=== PATIENT | male | born 2000 | race Caucasian/White ===

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

== ENCOUNTER 2020-01-28 17:42 | Emergency (ER) | payer MEDICARE, MEDICAID, SELFPAY ==
[2020-01-28 17:43] VITALS: BP 102/71; PULSE 85; RESP 18; TEMP 36.6; O2SAT 98; BMI 20.7
--- NOTE | 2020-01-28 19:21 | CM.ED ---
Social Work Consult: Mental Health Informant: Dr. Helton Chief Complaint: my dad wanted me to get checked out. Patient states to have nowhere to live. Marital/Social History: Single Living Situation: Unclear. Patient states to have been living with step sister but to be unable to live there anymore for reasons I don't want to share. Patient appears to be homeless and to have been staying with friends. Support/Resources: Reports to be active with [employer] and the [facility] Board of . Education/Employment: Disability due to developmental disabilities. Reports to be a normal person and to have no difficulty with understanding or comprehension. Patient reports to be own guardian. States to work at [employer]. Mental Health treatment/History: ADHD, Autism. Denies any concerns or history of inpatient psychiatric placement. Abuse Issues: Denies Substance Abuse/Use: Denies Risk to Self/Others: Denies Mental Status Exam: A&Ox3 Appearance/General Behavior: Appropriate. Calm. Communication Pattern: Responds to questions. Affect: Pleasant. Judgement: Fair Assessment: Met with patient in room. Introduced self as well as psychotherapist social worker role. Patient is agreeable to meeting with this psychotherapist social worker. Patient states to have no concerns for mental health or ability to care for self. Patient states to only want to find housing. Patient educated that this psychotherapist social worker is only able to contact [facility] for this evening and provide patient with housing resources. Patient agreeable to this psychotherapist social worker calling [facility] to see if there are any openings. Patient denies any other concerns or complaints at this time. Collaborating with Dr. Helton. Agreeable with plan for [facility] as patient has no medical reason for ED visit. Dirk EARLY, ROGER
--- NOTE | 2020-01-28 19:30 | CM.ED ---
Social Work This social service assistant walking through ED hallway to office to call [facility] for patient. Patient stopping this social service assistant in hallway stating My friend is coming to pick me up. Patient states to feel safe with friend and to now have housing. Patient thanking this social service assistant and wanting to leave. This social service assistant updated Dr. Helton and nursing staff. PLAN: Discharge to friends home. Dirk EARLY, ROGER
--- NOTE | 2020-01-28 19:35 | ED.VIS.GEN ---
History of Present Illness Chief Complaint: Mental Health Informant: Patient Narrative: Patient without symptoms who is very vague about why he came. He states that he is here because his dad wanted him to get checked out. He arrives alone. He states although my dad wanted me to get checked out/evaluated, I am not suicidal or homicidal, using any illicit substances, pretty myself in harm's way. But as you can see from my pack bags, I happened to be homeless at the moment. He states he was living with a sister recently and he states things did not work out for him as he had hoped they would so he left and is now on the streets for the past 2 or 3 days. States he has been eating and drinking, he has no medical issues or symptoms and has been compliant with his ADHD and autism/behavior medications including Risperdal. - Past Medical History (1) Autism Status: Chronic (2) ADHD Status: Chronic Past Medical History - Allergies and Home Meds Allergies/Adverse Reactions: Allergies No Known Allergies Allergy (Verified 01/05/17 08:29) Primary Care Physician: Roxi Blue MD [Primary Care Provider] - Lives: Homeless Smoking Status: Never smoker Alcohol: None Drugs: None Review of Systems General: Denies: Chills, Fever, Sweats Eyes: Denies: Visual changes - bilaterally, Diplopia ENT: Denies: Rhinorrhea, Sore throat Cardiovascular: Denies: Chest pain, Palpitations Respiratory: Denies: Dyspnea, Cough, Dyspnea on exertion Gastrointestinal: Denies: Abdominal pain, Nausea, Vomiting, Diarrhea, Melena, Hematochezia Genitourinary: Denies: Dysuria, Hematuria, Frequency Musculoskeletal: Denies: Back pain, Extremity Pain Skin: Denies: Rash, Wounds Neurological: Denies: Headache, Weakness, Numbness Psych: Reports: - - No homicidal ideation, hallucinations, delusions. Denies: Depression, Suicidal thoughts, Suicidal ideations Physical Exam Vital Signs/Narrative: Vital Signs Temp Pulse Resp BP Pulse Ox 01/28/20 17:43 97.9 F 85 18 102/71 98 Inital Vital Signs reviewed: Yes General: Well nourished, Well developed, No Acute Distress Head: Normocephalic, Atraumatic Eyes: Perrl, EOMI ENT: Moist mucous membranes, No rhinorrhea Neck: Supple, Nontender Cardiovascular: Regular rate, Regular rhythm, No murmurs Respiratory: No distress, CTA bilaterally, Chest nontender Abdomen: Soft, Nontender, Nondistended, Normal bowel sounds Back: Nontender, Normal Inspection Extremities: Nontender, No edema Skin: Normal color, No rash, No Trauma Neurological: Alert, Oriented x3, Cranial nerves II-XII grossly intact, Normal Strength, Normal Sensation, Normal Gait, - - Stuttering speech, no aphasia or dysarthria Psychological: Normal affect, Normal Mood Diagnostic/Tx/Re-eval - Medical Decision Making Medically patient does not need work-up. I had social work see him, in the process of evaluating him and trying to find him a half-way to go to [facility], he was texting with his father and a friend and someone is coming to pick him up. ED Disposition - Plan for ED Patient: Disposition: Home or Assisted Living Diagnosis: Encounter for medical screening examination Instructions: ADHD and Your Family Referrals: Roxi Blue MD [Primary Care Provider] - As Needed (and/or your counselor)
== END 2020-01-28 19:44 | disposition home or self-care (01) ==
PROVIDERS: Emergency Provider Emergency Medicine; PCP Pediatrics
DX: Z13.9 Encounter for screening, unspecified (principal); Z59.0 Homelessness; F84.0 Autistic disorder; F90.9 Attention-deficit hyperactivity disorder, unspecified type; Z79.899 Other long term (current) drug therapy
CPT/HCPCS: 99282

== ENCOUNTER 2020-02-10 13:50 | Emergency (ER) | payer MEDICARE, MEDICAID, SELFPAY ==
[2020-02-10 13:51] VITALS: BP 109/61; PULSE 77; RESP 18; TEMP 36.8; O2SAT 98; BMI 21.5
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
[2020-02-10] MEDS: Naproxen 500 MG Tablet PO (14:57)
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
--- NOTE | 2020-02-10 16:15 | ED.RN ---
DISCHARGE INSTRUCTIONS GIVEN TO AND REVIEWED WITH PATIENT, PATIENT DENIES QUESTIONS OR CONCERNS AND VOICES UNDERSTANDING OF DISCHARGE INSTRUCTIONS. PT AMBULATES OUT OF ROOM WITHOUT DIFFICULTY.
== END 2020-02-10 16:16 | disposition home or self-care (01) ==
LOC: ED 15:08
PROVIDERS: Emergency Provider Emergency Medicine; PCP Pediatrics
DX: S31.814A Puncture wound with foreign body of right buttock, initial encounter (principal); F31.9 Bipolar disorder, unspecified; Z79.899 Other long term (current) drug therapy; Z72.0 Tobacco use; W34.010A Accidental discharge of airgun, initial encounter; Y93.89 Activity, other specified; Y92.89 Other specified places as the place of occurrence of the external cause; Y99.8 Other external cause status
CPT/HCPCS: 72170; 99283

== ENCOUNTER → 2020-02-17 | Outpatient (CLI) | payer MEDICARE, MEDICAID, SELFPAY ==
[2020-02-10 13:51] VITALS: BMI 21.5
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
== END | disposition home or self-care (01) ==
LOC: CT 07:37
PROVIDERS: PCP Pediatrics; Referring Provider Orthopaedic Surgery; Visit Provider Orthopaedic Surgery
DX: S31.814A Puncture wound with foreign body of right buttock, initial encounter (principal)
CPT/HCPCS: 73700

== ENCOUNTER 2020-03-23 19:00 | Emergency (ER) | payer MEDICARE, MEDICAID, SELFPAY ==
[2020-03-23 19:02] VITALS: BP 95/52; PULSE 89; RESP 16; TEMP 36.4; O2SAT 96; BMI 20.9
[2020-03-23] MEDS: 0.9% Normal Saline 1,000 ML 1000 ML IV (20:13)
[2020-03-23 20:27] LABS: Absolute Lymphocyte Count 0.68 X10^3/uL (0.83-4.51); Absolute Neutrophil Count 7.9 X10^3/uL (2.0-7.7); Basophil# 0.02 X10^3/uL; Basophil% 0.2 % (0-1); Eosinophil# 0.05 X10^3/uL; Eosinophils% 0.5 % (0-5); Hematocrit 39.2 % (40-54); Hemoglobin 13.6 g/dL (13.0-16.5); Lymphocyte # 0.68 X10^3/ul (4.0); Lymphocyte % 7.2 % (19-41); Mean Corp Hgb Conc 34.7 g/dL (32-36); Mean Corpuscular Hgb 33.6 pg (27.0-32.0); Mean Corpuscular Volume 96.8 fL (80-94); Mean Platelet Vol. 10.1 fl (6.2-12.0); Monocyte# 0.71 X10^3/uL; Monocyte% 7.6 % (0-10); NRBC Flagged by Analyzer 0 % (0-5); Neutrophil # 7.87 X10^3/uL (2.7-7.7); Platelet Count 132 K/mm3 (150-450); RBC Distribution Width CV 11.7 % (11.6-14.6); RBC Distribution Width SD 41.5 fl (35.1-43.9); Red Blood Count 4.05 M/mm3 (4.6-6.2); White Blood Count 9.4 K/mm3 (4.4-11.0)
[2020-03-23 20:41] LABS: ALB/GLOB Ratio 1.5 RATIO (0.9-2.4); AST(SGOT) 14 U/L (15-37); Alanine Aminotransfer ALT/SGPT 27 U/L (16-61); Albumin, Serum 4.3 g/dL (3.2-5.0); Alkaline Phosphatase 70 U/L (45-117); Anion Gap 7 (5-15); BUN 20 mg/dL (7-18); BUN/Creat Ratio 15.9 RATIO (10-20); Calcium,Total 8.9 mg/dL (8.5-10.1); Chloride 103 mmol/L (98-107); Creatinine, Serum 1.26 mg/dL (0.70-1.30); EST Glomerular Filtration Rate 77 mL/min (>60); Est Glom Filt Rate - Afr Amer 93 mL/min (>60); Globulin 2.9 g/dL (2.2-4.2); Glucose 103 mg/dL (74-106); Protein, Total 7.2 g/dL (6.4-8.2); Sodium Level 138 mmol/L (136-145)
--- NOTE | 2020-03-23 21:26 | ED.VIS.GEN ---
History of Present Illness Chief Complaint: Substance Abuse Narrative: Patient is brought in by his father, apparently he consumed quite a bit of synthetic marijuana prior to arrival. His only complaint is that he is sleepy and hungry. Denies any myalgias, he denies any fever or chills, patient is somnolent but is arousable, he admits to synthetic marijuana he denies any other drugs. He specifically denies any suicidal ideations Past Medical History - Allergies and Home Meds Allergies/Adverse Reactions: Allergies No Known Allergies Allergy (Verified 03/23/20 19:04) Primary Care Physician: Roxi Blue MD [Primary Care Provider] - Past Medical History: None Smoking Status: Current every day smoker Review of Systems All systems negative except as indicated General: Denies: Fever Eyes: Denies: Visual changes - bilaterally ENT: Denies: Sore throat Cardiovascular: Denies: Chest pain Respiratory: Denies: Dyspnea, Cough Gastrointestinal: Denies: Abdominal pain, Nausea, Vomiting Musculoskeletal: Denies: Myalgias Skin: Denies: Rash Neurological: Denies: Headache, Weakness Hematologic: Denies: Easy bruising Physical Exam Vital Signs/Narrative: Vital Signs Temp Pulse Resp BP Pulse Ox 03/23/20 19:02 97.6 F L 89 16 95/52 L 96 General: Well nourished, Well developed, - - Somnolent but arousable Eyes: Perrl, EOMI, - - 3 mm pupils ENT: Moist mucous membranes Cardiovascular: Regular rate, Regular rhythm Respiratory: No distress Abdomen: Soft, Nontender Back: Nontender, Normal Inspection Extremities: Nontender Skin: Normal color Neurological: Alert, Oriented x3 Psychological: Normal affect Diagnostic/Tx/Re-eval - Medical Decision Making She was observed and slightly improved, he appears well, he has normal vitals and normal laboratory work-up I will discharge him in stable condition ED Disposition - Plan for ED Patient: Disposition: Home or Assisted Living Diagnosis: Mild tetrahydrocannabinol (THC) abuse Instructions: ED Marijuana Abuse Referrals: Roxi Blue MD [Primary Care Provider] - 3-5 Days
[2020-03-25 14:08] LABS: Creatine Kinase MB 0 % (0-3); Creatine Kinase MM 100 % (97-100); Creatine Kinase,Total,Serum 160 U/L (49-439); Macro I 0 % (Not Observed); Macro II 0 % (Not Observed)
[2020-03-25 15:25] LABS: Creatine Kinase BB 0 % (0)
== END 2020-03-23 21:43 | disposition home or self-care (01) ==
PROVIDERS: Emergency Provider Emergency Medicine; PCP Pediatrics
DX: F12.10 Cannabis abuse, uncomplicated (principal); F17.200 Nicotine dependence, unspecified, uncomplicated
CPT/HCPCS: 80053; 82550; 82552; 85025; 96360; 99285; J7030; A4216

== ENCOUNTER 2020-12-23 00:51 | Emergency (ER) | payer MEDICARE, MEDICAID, SELFPAY ==
[2020-12-23 00:53] VITALS: BP 152/106; PULSE 82; RESP 16; TEMP 36.2; O2SAT 99; BMI 20.7
--- NOTE | 2020-12-23 01:06 | EX.ED.DYSGE1 ---
HPI History of Present Illness Chief Complaint: Wound Informant: patient Onset/Context/Timing Onset: Days Context: Sudden Onset Timing: Continuous Quality: Calluses, blisters, pain Location: Feet Current Severity: Mild Maximum Severity: Moderate Worsened by: Shoes Relieved by: Nothing Associated Symptoms Associated Symptoms: Odor Narrative Narrative: Patient is a 20-year-old male with history depression who is homeless. He states the blisters and calluses formed several days ago. He changed his shoes. States he states these shoes are much more comfortable. He states he has not been out in the rain. The inside of his boots are wet. He has blisters noted on his toes and plantar surface of his foot. There is callus formation. There is no evidence of infection i.e. erythema, warmth or induration. He denies any fever or chills. He states he does smoke marijuana to help his depression. He also smokes half to 1 pack/day and occasional alcohol use to help his depression. Prior similar symptoms: No Recent Illness/Hospitalization: No PFSH PFSH Medical History (Updated 12/23/20 @ 01:[address] Mikey Benjamin MD) Anxiety Depression Home Medications NK 12/23/20 [History Last Taken Unknown] Allergy/AdvReac Type Severity Reaction Status Date / Time No Known Allergies Allergy Verified 12/23/20 00:52 unable to obtain no surgical history Social History (Updated 12/23/20 @ 01:[address] Mikey Benjamin MD) household members: none housing: homeless Smoking Status: Current every day smoker alcohol intake: current alcohol intake frequency: a few times a month substance use type: marijuana ROS ROS ED Constitutional Constitutional ED: Denies chills, fever(s), subjective or sweats Cardiovascular Cardiovascular: Denies chest pain or palpitations Respiratory/Chest Respiratory/Chest: Denies cough or dyspnea Gastrointestinal Gastrointestinal: Denies nausea or vomiting Musculoskeletal Musculoskeletal: Reports other Details: Bilateral feet pain due to calluses and blisters from prior shoes. ; Denies arthralgias, back pain, myalgias or neck pain Integumentary Denies rash Psychiatric Psychiatric: Reports depression; Denies suicidal thoughts EXAM Physical Exam Const Vital Signs: 12/23/20 00:53 Temperature 97.2 F L Temperature Source Temporal Pulse Rate 82 Respiratory Rate 16 Blood Pressure 152/106 H Blood Pressure Mean 121 Pulse Ox 99 Oxygen Delivery Method Room Air Positive well nourished and well developed General Appearance ED: well developed; Negative for pallor Eyes PERRL and EOMs intact bilaterally General Eye ED: Negative for pale conjunctiva or scleral icterus Neck no lymphadenopathy, supple and no JVD Chest Wall inspection of chest normal Resp normal respiratory effort Cardio regular rate and regular rhythm Extremity Negative for normal to inspection Extremity Narrative: Patient has multiple blisters on his toes and plantar surface of his right and left foot. There is calluses noted. There is no evidence infection i.e. erythema, warmth, induration or fluctuance. There is no lymphangitis. DP and PT pulse are palpable. There is no evidence of fungal infection between his toes. General Extremety ED: Yes tenderness; Negative for edema General Extremity: Negative for edema Psych mental status grossly normal Skin skin turgor normal Skin Narrative: Previously described General Skin Exam: Negative for jaundice or pallor MDM MDM MDM Narrative Medical decision making narrative: We'll have nurse clean his feet and had his feet. Since his shoes are wet and concerned he is developing trench foot as well as problems with blisters and calluses well dispense postop shoe for comfort. Discharge Plan Triage Chief Complaint: Wound Other Complaint: Lower Extremity Injury ED Provider: Mikey Benjamin Dx/Rx/DC Orders Clinical Impression: Blisters of multiple sites, Callus of foot, Trench feet Instructions: Treating Corns and Calluses Prescriptions: No Action NK RF: 0 Primary Care Provider: NOT,DEFINED Referrals: She John [NON-STAFF] - 1 Week if not improving NOT,DEFINED [Primary Care Provider] - Disposition Disposition: Home, self care
--- NOTE | 2020-12-23 01:15 | ED.RN ---
Redness and callouses noted on bilat feet. HE has boots that are damp. Feet and shoes have strong smell. Cleaned with soap and water and dried well. Applied lotion and let dry completely before giving him socks and post op boots. Tolerated well.
[2020-12-23 01:36] VITALS: BP 144/74; PULSE 62; RESP 16; TEMP 36.9; O2SAT 97
== END 2020-12-23 01:38 | disposition home or self-care (01) ==
LOC: ED 01:28
PROVIDERS: Emergency Provider Emergency Medicine
DX: L84 Corns and callosities (principal); T69.022A Immersion foot, left foot, initial encounter; T69.021A Immersion foot, right foot, initial encounter; R23.8 Other skin changes; F17.210 Nicotine dependence, cigarettes, uncomplicated; Z59.0 Homelessness
CPT/HCPCS: 99283

== ENCOUNTER 2020-12-24 22:13 | Emergency (ER) | payer MEDICARE, MEDICAID, SELFPAY ==
[2020-12-23 00:53] VITALS: BMI 20.7
[2020-12-24 22:14] VITALS: BP 106/60; PULSE 76; RESP 14; TEMP 36.4; O2SAT 97; BMI 22.2
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
[2020-12-24 23:15] LABS: Absolute Lymphocyte Count 2.28 X10^3/uL (0.83-4.51); Absolute Neutrophil Count 2.8 X10^3/uL (2.0-7.7); Basophil# 0.03 X10^3/uL; Basophil% 0.5 % (0-1); Eosinophil# 0.29 X10^3/uL; Eosinophils% 4.9 % (0-5); Hematocrit 37.7 % (40-54); Hemoglobin 12.7 g/dL (13.0-16.5); Lymphocyte # 2.28 X10^3/ul (0.83-4.51); Lymphocyte % 38.5 % (19-41); Mean Corp Hgb Conc 33.7 g/dL (32-36); Mean Corpuscular Hgb 33.2 pg (27.0-32.0); Mean Corpuscular Volume 98.4 fL (80-94); Mean Platelet Vol. 9.8 fl (6.2-12.0); Monocyte# 0.48 X10^3/uL; Monocyte% 8.1 % (0-10); NRBC Flagged by Analyzer 0 % (0-5); Neutrophil % 47.3 % (47-70); Platelet Count 140 K/mm3 (150-450); RBC Distribution Width SD 46.1 fl (35.1-43.9); Red Blood Count 3.83 M/mm3 (4.6-6.2); White Blood Count 5.9 K/mm3 (4.4-11.0)
[2020-12-24 23:21] LABS: Anion Gap 4 (5-15); BUN 17 mg/dL (7-18); BUN/Creat Ratio 13.5 RATIO (10-20); Calcium,Total 8.5 mg/dL (8.5-10.1); Chloride 109 mmol/L (98-107); Creatinine, Serum 1.26 mg/dL (0.70-1.30); EST Glomerular Filtration Rate 77 mL/min (>60); Est Glom Filt Rate - Afr Amer 93 mL/min (>60); Estimated Creatinine Clearance 92.35 ml/min; Glucose 92 mg/dL (74-106); Potassium 3.7 mmol/L (3.5-5.1); Sodium Level 141 mmol/L (136-145)
[2020-12-25 00:11] VITALS: BP 100/63; PULSE 58; RESP 12; O2SAT 95
[2020-12-25 02:56] VITALS: BP 98/64; PULSE 49; RESP 12; O2SAT 97
[2020-12-25 04:25] VITALS: BP 90/59; PULSE 49; RESP 10; O2SAT 100
[2020-12-25 05:08] VITALS: BP 99/66; PULSE 48; RESP 12; O2SAT 100
[2020-12-25 07:00] VITALS: PULSE 60; RESP 14; O2SAT 98
== END 2020-12-25 07:01 | disposition home or self-care (01) ==
PROVIDERS: Emergency Provider Emergency Medicine
DX: F12.10 Cannabis abuse, uncomplicated (principal); F17.200 Nicotine dependence, unspecified, uncomplicated
CPT/HCPCS: 80048; 82077; 85025; 99285

== ENCOUNTER 2021-01-11 12:03 | Emergency (ER) | payer MEDICARE, MEDICAID, SELFPAY ==
[2021-01-11 12:05] VITALS: BP 111/73; PULSE 85; RESP 16; TEMP 37.2; O2SAT 96; BMI 21.2
--- NOTE | 2021-01-11 13:59 | EDS_ITS ---
HPI HPI - Psych History of Present Illness Chief Complaint: Mental Health Informant: patient Narrative Narrative: Patient is a 20-year-old male with a past medical history of autism, ADHD who presents to the emergency department after his parents called the police. He was saying things about harming other people. According to his parents he was making comments arriving places. Patient denies any thoughts of harming yourself or anybody else at this time. He states he would never do that and he understands the consequences of this. He states that he was just feeling very frustrated which caused him to say these things. He denies these thoughts before in the past. Patient denies any other physical symptoms. No headache or vision changes. No chest pain or shortness of breath. He denies any fevers or chills. No neck pain. He states he has been on a mood stabilizer over the past couple months which he feels like has been helping. He denies any drug or alcohol use. He does smoke cigarettes. [facility] Medical History Anxiety Depression Home Medications NK 12/23/20 [History Last Taken Unknown] Allergy/AdvReac Type Severity Reaction Status Date / Time No Known Allergies Allergy Verified 01/11/21 12:08 Social History household members: none housing: homeless Smoking Status: Current every day smoker tobacco type: cigarettes alcohol intake: current alcohol intake frequency: a few times a month substance use type: marijuana ROS ROS ED Constitutional Constitutional ED: Denies chills or fever(s) Eyes Eyes: Denies change in vision ENT ENT ED: Denies epistaxis or rhinorrhea Cardiovascular Cardiovascular: Denies chest pain or palpitations Respiratory/Chest Respiratory/Chest: Denies cough, dyspnea or dyspnea on exertion Gastrointestinal Gastrointestinal: Denies abdominal pain, diarrhea, nausea or vomiting Genitourinary Genitourinary ED: Denies dysuria, hematuria or urinary frequency Musculoskeletal Musculoskeletal: Denies back pain or neck pain Integumentary Denies rash Neurologic Neurologic: Denies dizziness, headache(s) or weakness EXAM Physical Exam Const Vital Signs: 01/11/21 14:37 Pulse Rate 84 Respiratory Rate 18 Blood Pressure 112/70 Positive well nourished and well developed General Appearance ED: well developed and NAD HEENT Reports normocephalic and head/scalp atraumatic Eyes PERRL and EOMs intact bilaterally Neck supple Resp normal respiratory effort and clear to auscultation bilaterally Auscultation: Negative for rales, rhonchi or wheezes Cardio regular rate, regular rhythm and no murmurs GI normal to inspection, nondistended, normoactive bowel sounds and non-tender Palpation: soft; Negative for guarding or rebound tenderness present Back/Spine no CVA tenderness Extremity normal to inspection General Extremety ED: Negative for edema or tenderness General Extremity: Negative for edema Neuro oriented x3, CN's II-XII intact bilaterally and no sensory deficits noted Sensorium / Orientation: alert Motor Exam: strength 5/5 throughout Psych mental status grossly normal Psych Narrative: Patient does get mildly agitated because he cannot smoke a cigarette. He otherwise has been very calm and cooperative throughout ED stay. Denying any suicidal or homicidal ideations. Skin no rashes or lesions noted MDM MDM MDM Narrative Medical decision making narrative: Patient presents to the ED for pink slip made by the police after his parents called him about thoughts of harming other peopl e. Patient states that he was just seeing this out of frustration and he would never do that. Social work did evaluate the patient and contacted his special machine stitcher. Patient understands that he cannot say these things. He is denying all suicidal or homicidal ideation throughout ED stay. Social work did not contact with his father was willing to medicinal plant picker patient. They are going to follow-up with him today and tomorrow. Crisis has been notified of him. Return precautions are reviewed with the patient to be discharged home in stable condition. All questions were answered. Discharge Plan Triage Chief Complaint: Mental Health ED Provider: Luis Guan Dx/Rx/DC Orders Clinical Impression: Agitation, Thoughts of harming others Instructions: Responding Better to Stress Prescriptions: No Action NK RF: 0 Primary Care Provider: Care Physician,No Primary Referrals: Ryland Menon MD [STAFF PHYSICIAN] - As soon as possible Care Physician,No Primary [Primary Care Provider] - Disposition Disposition: Home, self care Discharge Date/Time: 01/11/21 14:37
[2021-01-11 14:37] VITALS: BP 112/70; PULSE 84; RESP 18
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
--- NOTE | 2021-01-12 12:43 | CM.ED ---
SOCIAL WORK Follow up call Call to patient to check on status from ER visit on 01/11/2021. Patient reports I'm doing good. [facility] Patient denies any questions or concerns. Yareli Altman, CAR SHUNTER, SANDBLAST OR SHOTBLAST EQUIPMENT TENDER
--- NOTE | 2021-01-13 11:10 | CM.ED ---
SOCIAL WORK Received call from patient's Tax Collector through [employer], Ines Sotelo. Per Ines, patient did follow up after ER visit. Ines provided this worker with contact information for any future needs- [phone]. Per Ines, Release of Information has been sent to Medical Records. Yareli Altman MSW, SUBMARINE WORKER
== END 2021-01-11 14:37 | disposition home or self-care (01) ==
PROVIDERS: Emergency Provider Emergency Medicine
DX: R45.1 Restlessness and agitation (principal); R45.850 Homicidal ideations; F41.9 Anxiety disorder, unspecified; F32.9 Major depressive disorder, single episode, unspecified; F17.210 Nicotine dependence, cigarettes, uncomplicated; Z79.899 Other long term (current) drug therapy
CPT/HCPCS: 99282

== ENCOUNTER 2021-01-14 01:15 | Emergency (ER) | payer MEDICARE, MEDICAID, SELFPAY ==
[2021-01-14 01:17] VITALS: BP 113/97; PULSE 64; RESP 18; TEMP 36.3; O2SAT 100; BMI 20.6
--- NOTE | 2021-01-14 01:21 | RAD_ITS ---
STUDY: X-RAY - RIGHT TIBIA AND FIBULA REASON FOR EXAM: Male, 20 years old. pain TECHNIQUE: 4 view(s) of the tibia and fibula were obtained. COMPARISON: None. FINDINGS: Normal visualized tibia. Normal visualized fibula. The soft tissue structures are unremarkable. RAD/Tibia & Fibula 2 Views IMPRESSION: Normal x-ray examination of the tibia and fibula. Electronically Signed: Geovanny Espinosa DO at 1:54 EDT Tel , Service support ,
--- NOTE | 2021-01-14 01:21 | EDS_ITS ---
HPI History of Present Illness Chief Complaint: Lower Extremity Injury Informant: patient and EMS Narrative Narrative: Patient presents with right lower tibia pain. He states that he has been walking a lot, to and from [place]. He has pain over the anterior portion of the lower tibia. He has some mild swelling. Is worse when he walks but he took nothing for. He denies any specific injury except for overuse. No previous injuries or surgeries to this area. [facility] Medical History Anxiety Depression Home Medications lamotrigine 50 mg PO BID 01/14/21 [History Last Taken Unknown] risperidone 4 mg PO QHS 01/14/21 [History Last Taken Unknown] Allergy/AdvReac Type Severity Reaction Status Date / Time No Known Allergies Allergy Verified 01/14/21 01:21 Surgical History History of embolic filter insertion Social History household members: none housing: homeless Smoking Status: Current every day smoker tobacco type: cigarettes alcohol intake: current alcohol intake frequency: a few times a month substance use type: marijuana ROS ROS ED Constitutional Constitutional ED: Denies chills or fever(s) Eyes Eyes: Denies blurry vision, change in vision or diplopia ENT ENT ED: Denies ear pain, rhinorrhea or sore throat Cardiovascular Cardiovascular: Denies chest pain or palpitations Respiratory/Chest Respiratory/Chest: Denies cough, dyspnea or sputum Gastrointestinal Gastrointestinal: Denies abdominal pain, diarrhea, nausea or vomiting Genitourinary Genitourinary ED: Denies dysuria, hematuria or urinary frequency Musculoskeletal Musculoskeletal: Reports other Details: Right tibial pain Integumentary Denies change in pigmentation or rash Neurologic Neurologic: Denies headache(s), numbness or weakness Psychiatric Psychiatric: Denies anxiety or depression Endocrine Endocrinology: Denies polydipsia or polyuria EXAM Physical Exam Const Vital Signs: 01/14/21 01:17 Temperature 97.3 F L Temperature Source Oral Pulse Rate 64 Respiratory Rate 18 Blood Pressure 113/97 H Blood Pressure Mean 102 Pulse Ox 100 Oxygen Delivery Method Room Air Positive well nourished and well developed General Appearance ED: well developed HEENT normocephalic and atraumatic Eyes PERRL Neck full ROM Extremity Extremity Narrative: The right anterior tibia has some mild swelling. No erythema. He has tenderness of the anterior portion of the tibia. There is no malleoli or tenderness. There is no Achilles tenderness. He has limited range of motion secondary to pain. His compartments are soft. MDM MDM MDM Narrative Medical decision making narrative: Patient was given Tylenol. X-rays did not reveal any acute fractures. Patient will be discharged use ice and NSAIDs. Radiography Diagnostic Testin view x-ray of the right tibia and fibula, interpreted by myself, shows no acute findings. No fracture. Minimal soft tissue swelling noted over the lower tibial area Discharge Plan Triage Chief Complaint: Lower Extremity Injury ED Provider: Travis Evans Dx/Rx/DC Orders Clinical Impression: Lower extremity pain, right Instructions: ED Muscle Strain, Extremity Prescriptions: No Action risperidone 2 mg tablet 4 mg PO QHS RF: 0 lamotrigine 100 mg tablet 50 mg PO BID RF: 0 Primary Care Provider: Care Physician,No Primary Referrals: Care Physician,No Primary [Primary Care Provider] - Disposition Disposition: Home, self care
[2021-01-14] MEDS: Acetaminophen 500 MG Tablet 1000 MG PO (01:24)
== END 2021-01-14 02:09 | disposition home or self-care (01) ==
PROVIDERS: Emergency Provider Emergency Medicine
DX: M79.604 Pain in right leg (principal); F41.9 Anxiety disorder, unspecified; F32.9 Major depressive disorder, single episode, unspecified; F17.210 Nicotine dependence, cigarettes, uncomplicated; Z79.899 Other long term (current) drug therapy
CPT/HCPCS: 73590; 99284

== ENCOUNTER 2021-02-04 11:09 | Emergency (ER) | payer MEDICARE, MEDICAID, SELFPAY ==
[2021-02-04 11:10] VITALS: BP 107/62; PULSE 60; RESP 18; TEMP 36.6; O2SAT 99; BMI 21.5
--- NOTE | 2021-02-04 11:28 | EDS_ITS ---
HPI History of Present Illness Chief Complaint: Rash Informant: patient Narrative Narrative: Patient is a 20-year-old male who presents to the emergency department for pain and rash to the right inner thigh. This initially started yesterday. He states that he feels like his scrotum is rubbing up against his leg which is causing it to irritate. He does not have clean underwear to wear as he is currently homeless. He states his dad is supposed to give him money to buy new clothes whenever he gets out of work around 330 today. Patient denies any systemic symptoms. He has no fevers or chills. No abdominal pain. Denies any urinary symptoms. No change in moving his bowels. He has not a diabetic. He denies this ever happening before in the past. He states that walking and moving the leg and touching the area makes it worse. He has not tried anything for it. He is here to request some ointment to put on it. [facility] Medical History Anxiety Depression Home Medications lamotrigine 50 mg PO BID 01/14/21 [History Last Taken Unknown] risperidone 4 mg PO QHS 01/14/21 [History Last Taken Unknown] Allergy/AdvReac Type Severity Reaction Status Date / Time No Known Allergies Allergy Verified 02/04/21 11:12 Surgical History History of embolic filter insertion Social History household members: none housing: homeless Smoking Status: Current every day smoker tobacco type: cigarettes alcohol intake: current alcohol intake frequency: a few times a month substance use type: marijuana ROS ROS ED Constitutional Constitutional ED: Denies chills or fever(s) Eyes Eyes: Denies change in vision ENT ENT ED: Denies epistaxis or rhinorrhea Cardiovascular Cardiovascular: Denies chest pain or palpitations Respiratory/Chest Respiratory/Chest: Denies cough, dyspnea or dyspnea on exertion Gastrointestinal Gastrointestinal: Denies abdominal pain, diarrhea, nausea or vomiting Genitourinary Genitourinary ED: Denies dysuria, hematuria or urinary frequency Musculoskeletal Musculoskeletal: Denies back pain or neck pain Integumentary Reports rash Neurologic Neurologic: Denies headache(s) EXAM Physical Exam Const Vital Signs: 02/04/21 11:10 02/04/21 12:31 02/04/21 12:34 Temperature 97.9 F Temperature Source Temporal Pulse Rate 60 Respiratory Rate 18 18 18 Blood Pressure 107/62 Blood Pressure Mean 77 Pulse Ox 99 Oxygen Delivery Method Room Air Positive well nourished and well developed General Appearance ED: well developed HEENT Negative for trauma Eyes PERRL Neck supple Chest Wall inspection of chest normal Resp normal respiratory effort Cardio regular rate GI non-tender and non-distended Palpation: soft Back/Spine Lumbar Spine / Lower Back: Negative for lumbar spinal tenderness Neuro CN's II-XII intact bilaterally Sensorium / Orientation: alert Motor Exam: strength 5/5 throughout Psych mental status grossly normal Attitude: agitated Skin Skin Narrative: Erythema and irritation to right inner thigh. There is mild erythema to the right side of the scrotum. This is mildly tender to touch. No crepitus. This does seem like skin irritation. No significant warmth over the area. No drainage present. MDM MDM MDM Narrative Medical decision making narrative: Patient presents to the emergency department for irritation to the skin on his right inner thigh. He has not change his underwear lately and is supposed to buy new underwear today. On exam it does appear red and irritated. We will place him on calmoseptine ointment for barrier protection as well as a mupirocin ointment for potential infection development. He is to monitor for signs of infection including systemic infection. He develops any fever/chills, worsening of the rash needs to return back to the emergency department and put on oral or IV antibiotics. No evidence of foreign years gangrene. He denies any risk factors for this. He understands and is agreeable this plan. Discharged home in stable condition. All questions were answered. Discharge Plan Triage Chief Complaint: Rash ED Provider: Luis Guan Dx/Rx/DC Orders Clinical Impression: Skin irritation Instructions: ED Wound Care Prescriptions: No Action risperidone 2 mg tablet 4 mg PO QHS RF: 0 lamotrigine 100 mg tablet 50 mg PO BID RF: 0 Primary Care Provider: Care Physician,No Primary Referrals: Care Physician,No Primary [Primary Care Provider] - 3-5 Days if not improving Disposition Disposition: Home, Self Care Discharge Date/Time: 02/04/21 12:43
[2021-02-04] MEDS: Mupirocin Ointment 22gm Tube 1 APPLIC TOPICAL (12:28)
[2021-02-04] MEDS: Menthol/Lanolin/Calamine/Znox 113 GM Tube 1 APPLIC TOPICAL (12:30)
[2021-02-04 12:31] VITALS: RESP 18
[2021-02-04 12:34] VITALS: RESP 18
== END 2021-02-04 12:43 | disposition home or self-care (01) ==
PROVIDERS: Emergency Provider Emergency Medicine
DX: L53.9 Erythematous condition, unspecified (principal); Z59.0 Homelessness; F41.9 Anxiety disorder, unspecified; F32.9 Major depressive disorder, single episode, unspecified; F17.210 Nicotine dependence, cigarettes, uncomplicated; Z79.899 Other long term (current) drug therapy
CPT/HCPCS: 99284

== ENCOUNTER 2021-05-08 12:32 | Emergency (ER) | payer MEDICARE, MEDICAID, SELFPAY ==
[2021-05-08] VITALS (12 sets, daily range): BP systolic 94–128; BP diastolic 56–78; PULSE 58–88; RESP 12–16; TEMP 36.2–36.3; O2SAT 99–100; BMI 21.4
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
--- NOTE | 2021-05-08 12:51 | EKG12_ITS ---
Test Reason : MENTAL CLEARANCE Blood Pressure : / mmHG Vent. Rate : 051 BPM Atrial Rate : 051 BPM P-R Int : 120 ms QRS Dur : 100 ms QT Int : 428 ms P-R-T Axes : -25 075 053 degrees QTc Int : 394 ms Sinus bradycardia Otherwise normal ECG Confirmed by ORESTES VARGHESE, DAVID ([id number]), fashion editor JESSICA MOSCOSO ([id number]) on 05/10/2021 1:25:08 PM Referred By: ESVIN Confirmed By:DAVID CARLISLE MD
[2021-05-08 13:22] LABS: Absolute Lymphocyte Count 1.46 X10^3/uL (0.83-4.51); Absolute Neutrophil Count 2.9 X10^3/uL (2.0-7.7); Basophil# 0.02 X10^3/uL; Basophil% 0.4 % (0-1); Eosinophil# 0.07 X10^3/uL; Eosinophils% 1.4 % (0-5); Hematocrit 41.5 % (40-54); Hemoglobin 13.9 g/dL (13.0-16.5); Lymphocyte # 1.46 X10^3/ul (0.83-4.51); Mean Corp Hgb Conc 33.5 g/dL (32-36); Mean Corpuscular Hgb 33.3 pg (27.0-32.0); Mean Corpuscular Volume 99.3 fL (80-94); Mean Platelet Vol. 9.9 fl (6.2-12.0); Monocyte# 0.35 X10^3/uL; Monocyte% 7.2 % (0-10); NRBC Flagged by Analyzer 0 % (0-5); Neutrophil # 2.94 X10^3/uL (2.7-7.7); Neutrophil % 60.6 % (47-70); Platelet Count 132 K/mm3 (150-450); RBC Distribution Width CV 11.8 % (11.6-14.6); RBC Distribution Width SD 42.9 fl (35.1-43.9); Red Blood Count 4.18 M/mm3 (4.6-6.2); White Blood Count 4.9 K/mm3 (4.4-11.0)
[2021-05-08 13:27] LABS: Amphetamine Urine VISTA NEGATIVE (<1000 ng/mL); Barbiturate Urine VISTA NEGATIVE (< 200 ng/mL); Benzodiazepine Urine VISTA NEGATIVE (< 200 ng/mL); Cocaine Urine VISTA NEGATIVE (< 300 ng/mL); Ecstacy Urine VISTA NEGATIVE (< 500 ng/mL); Methadone Urine VISTA NEGATIVE (< 300 ng/mL); PCP Urine VISTA NEGATIVE (< 25 ng/mL); THC Urine VISTA POSITIVE (< 50 ng/mL); Vista UDS pH Range 6
[2021-05-08 13:31] LABS: Anion Gap 6 (5-15); BUN 19 mg/dL (7-18); BUN/Creat Ratio 16.4 RATIO (10-20); Calcium,Total 8.9 mg/dL (8.5-10.1); Chloride 107 mmol/L (98-107); Creatinine, Serum 1.16 mg/dL (0.70-1.30); EST Glomerular Filtration Rate 84 mL/min (>60); Est Glom Filt Rate - Afr Amer 102 mL/min (>60); Estimated Creatinine Clearance 96.89 ml/min; Glucose 99 mg/dL (74-106); Potassium 3.7 mmol/L (3.5-5.1); Sodium Level 140 mmol/L (136-145)
--- NOTE | 2021-05-08 14:38 | NURSING ---
[facility]. TALKED TO ANSWERING SERVICE. THEY WILL LET [facility] KNOW ABOUT PATIENT
--- NOTE | 2021-05-08 14:45 | NURSING ---
FAX CHART TO CRISIS
--- NOTE | 2021-05-08 15:01 | NURSING ---
[facility], CRISIS, CALLED. SHE HAS TO TAKE CARE OF SOMETHING, THEN SHE WILL BE IN TO SEE PATIENT
--- NOTE | 2021-05-08 20:36 | CM.ED ---
SOCIAL WORK ASSESSMENT Referral Source: Reason for Consult: Mental Health Chief Compliant: Patient said that he is at the hospital as ?people thought I was suicidal as a couple of days ago I put a knife near my neck area. but I said nope not worth it?. Patient said that the lady he lives with, Anyi, brought him to the hospital today. Patient minimizes his behavior said ?If I said something? It was in anger or frustration... I can control it?. Anyi, who he lives with, reports that patient was disappointed as his bio mom was to come and get him this weekend and take him back to [place] but has not come to pick him up. Marital/Social History: Single. No children Living Situation: Patient resides with a woman, Anyi, in [place]. 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 H Support/Resources: He reports Anyi is a support History: No Education and Employment History: Patient is unemployed. Patient graduated from [employer]. He reports he had an IEP that helped him with math and science. Mental Health Treatment/History: [facility] but has been linked with them in the past. Per [facility] records patient has not seen a psychiatric provider since 08/27/19. Patient reports no psychiatric placement in the past. Patient is linked with Dr. Lopez at [facility]. Triggers/Stressors: Patient said that a trigger is ?if someone says something offensive?. Coping Skills: ?I like to talk to someone... I try to sit by myself?. Substance Abuse History: SW asked about AOD use. Patient said, ?I use marijuana every once and awhile?. He reports that he last used marijuana a day ago and said, ?not that much?. SW asked how much he used, and he said, ?a blunt and then a hit of a second blunt?. Tox + THC Abuse: Patient denied any history of abuse or neglect Risk to Self/Others: Suicidal- Patient denied his suicidal ideation but appears to be minimizing his behavior. Patient said, ?it sounds like that... but I didn?t mean it?. Homicidal: Denied Violence: Denied Mental Status Exam: Orientation: x4 Memory: Patient can recall some history such as where he went and graduated from high school however, he is unable to recall the lady he lives with phone number. Appearance/General Behavior: Clean, Appropriate Hygiene. Cooperative Mood and Affect: Neutral mood and affect Thought Process: Logical and Linear General Intellectual Functioning: Low Average. Had IEP in High School Judgement: Impaired Insight: Impaired Assessment: Patient presents to the ED with the lady he lives with, Anyi. Anyi reports that patient said that patient reports that wants he wants to daily. Patient has voiced, in the past, desire to slit his wrist. Anyi stated that patient took a knife and was moving it back and forth toward his neck this past week and voice SI. Anyi said that she does not know if patient is med compliant. Anyi called his psychiatrist who stated to bring patient to the ED for evaluation. Plan: Inpatient psych unit Anya RAMIREZ
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
--- NOTE | 2021-05-08 22:22 | CM.ED ---
SW Note ABHIJEET called Gladis at [facility]. She indicated patient was accepted. Accepting MD is Ashanti Landin. Patient is going to [facility]. SW was told to have RN to RN call [phone]. ABHIJEET updated RN Cosmo. [facility] called for transport. ABHIJEET called patient's friend, Anyi for update. No further SW needs at this time. Anya RAMIREZ
--- NOTE | 2021-05-08 22:31 | CM.ED ---
SW called patient's friend, Anyi Snell, and updated her that patient is going to [facility] and gave phone number and address. Anyi said that she would update patient's father. No further SW needs at this time Anya RAMIREZ
[2021-05-09 00:23] VITALS: RESP 16
== END 2021-05-09 00:24 ==
PROVIDERS: Emergency Provider Emergency Medicine
DX: R45.851 Suicidal ideations (principal); F17.210 Nicotine dependence, cigarettes, uncomplicated; Z79.899 Other long term (current) drug therapy
CPT/HCPCS: 80048; 80307; 82077; 85025; 87426; 93005; 99285

== ENCOUNTER 2021-05-26 20:57 | Emergency (ER) | payer MEDICARE, MEDICAID, SELFPAY ==
[2021-05-26 20:58] VITALS: BP 117/84; PULSE 91; RESP 16; O2SAT 96
[2021-05-26 20:59] VITALS: BP 117/84; PULSE 91; RESP 15; TEMP 36.9; O2SAT 98; BMI 21.7
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
--- NOTE | 2021-05-26 21:11 | RAD_ITS ---
STUDY: X-RAY - LEFT ELBOW REASON FOR EXAM: Male, 20 years old. trauma TECHNIQUE: 3 view(s) of the elbow. COMPARISON: None. FINDINGS: Normal visualized humerus, radius and ulna. Normal radiocapitellar and ulnotrochlear articulations. The soft tissue structures are unremarkable. There is no demonstrated fracture. RAD/Elbow min 3 Views IMPRESSION: Normal x-ray examination of the elbow. Electronically Signed: Jamar Robbins MD at 21:39 EDT , Service support ,
[2021-05-26 21:59] VITALS: BP 110/74; PULSE 90; RESP 15; O2SAT 98
== END 2021-05-26 22:01 | disposition home or self-care (01) ==
LOC: ED 21:33
PROVIDERS: Emergency Provider Emergency Medicine
DX: S50.02XA Contusion of left elbow, initial encounter (principal); F41.9 Anxiety disorder, unspecified; F32.A Depression, unspecified; F90.9 Attention-deficit hyperactivity disorder, unspecified type; F17.210 Nicotine dependence, cigarettes, uncomplicated; Z79.899 Other long term (current) drug therapy; V03.90XA Pedestrian on foot injured in collision with car, pick-up truck or van, unspecified whether traffic or nontraffic accident, initial encounter; Y93.01 Activity, walking, marching and hiking; Y92.410 Unspecified street and highway as the place of occurrence of the external cause; Y99.8 Other external cause status
CPT/HCPCS: 73080; 99283; A4216

== ENCOUNTER 2021-05-29 05:33 | Emergency (ER) | payer MEDICARE, MEDICAID, SELFPAY ==
[2021-05-29 05:34] VITALS: BP 100/66; PULSE 69; RESP 16; TEMP 36.4; O2SAT 97; BMI 22.6
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
--- NOTE | 2021-05-29 05:52 | RAD_ITS ---
HISTORY: pain EXAMINATION/TECHNIQUE: XR Ankle Min 3 Views: Left ankle COMPARISON: None FINDINGS: SOFT TISSUES: No significant soft tissue swelling. No radiopaque foreign body identified. BONES/JOINTS: No acute fracture or subluxation. Normal alignment. Preservation of the joint spaces. No suspicious osseous lesion. RAD/Ankle min 3 Views IMPRESSION: Negative left ankle. at 0615 Reported and signed by: Blayne Rodas MD Electronically Signed: Blayne Rodas MD at 6:14 EDT Tel , Service support ,
== END 2021-05-29 07:03 | disposition home or self-care (01) ==
PROVIDERS: Emergency Provider Emergency Medicine
DX: T69.022A Immersion foot, left foot, initial encounter (principal); T69.021A Immersion foot, right foot, initial encounter; F41.9 Anxiety disorder, unspecified; F32.A Depression, unspecified; F90.9 Attention-deficit hyperactivity disorder, unspecified type; F17.210 Nicotine dependence, cigarettes, uncomplicated; Z79.899 Other long term (current) drug therapy
CPT/HCPCS: 73610; 99285; A4216

== ENCOUNTER 2021-06-23 12:59 | Emergency (ER) | payer MEDICARE, MEDICAID, SELFPAY ==
[2021-06-23 13:00] VITALS: BP 102/61; PULSE 74; RESP 18; TEMP 36.6; O2SAT 96; BMI 22.8
== END 2021-06-23 14:20 | disposition left against medical advice (07) ==
LOC: ED 14:33
DX: F32.A Depression, unspecified (principal)

== ENCOUNTER 2021-09-05 06:42 | Emergency (ER) | payer MEDICARE, MEDICAID, SELFPAY ==
[2021-09-05 06:43] VITALS: BP 141/66; PULSE 76; RESP 20; TEMP 36.8; O2SAT 100; BMI 21.9
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
--- NOTE | 2021-09-05 07:20 | EKG12_ITS ---
Test Reason : CP Blood Pressure : / mmHG Vent. Rate : 079 BPM Atrial Rate : 079 BPM P-R Int : 126 ms QRS Dur : 100 ms QT Int : 380 ms P-R-T Axes : -22 080 049 degrees QTc Int : 435 ms Normal sinus rhythm Normal ECG Confirmed by CATHI MENDEZ MD ([id number]), web content editor JESSICA MOSCOSO ([id number]) on 09/06/2021 10:13:03 AM Referred By: BRANDY Confirmed By:CATHI MENDEZ MD
[2021-09-05 07:46] VITALS: BP 122/72; PULSE 68; RESP 11; O2SAT 100
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
[2021-09-05 08:18] VITALS: BP 122/72; PULSE 80; RESP 16; O2SAT 100
--- NOTE | 2021-09-05 08:52 | ED.RN ---
PT FATHER TAKES PT HOME.
== END 2021-09-05 08:52 | disposition home or self-care (01) ==
LOC: ED 07:32
PROVIDERS: Emergency Provider Emergency Medicine; Visit Provider Emergency Medicine
DX: R07.9 Chest pain, unspecified (principal); F17.210 Nicotine dependence, cigarettes, uncomplicated; F12.90 Cannabis use, unspecified, uncomplicated; Z59.00 Homelessness unspecified; Z79.899 Other long term (current) drug therapy
CPT/HCPCS: 93005; 99285; A4216

== ENCOUNTER 2021-09-11 20:23 | Emergency (ER) | payer MEDICARE, MEDICAID, SELFPAY ==
[2021-09-11 20:24] VITALS: BP 125/75; PULSE 78; RESP 16; TEMP 35.8; O2SAT 100; BMI 21.4
--- NOTE | 2021-09-11 20:45 | EX.ED.SAOD ---
HPI History of Present Illness Chief Complaint: Palpitations Narrative Narrative: 20-year-old male presenting for evaluation. He states that he smoked medical marijuana tonight and became very high and his ear started ringing. He began to have anxiety about this. His friends told him that he was just high but he presented to the ER for evaluation. He states that his concern was that he did some drugs a couple of weeks ago. He does not know what he took. He states he did not overdose but he is concerned that he might have triggered a withdrawal by smoking medical marijuana. He states the marijuana was not laced and does not have concern for this. Patient has no cardiac history. He has no lung problems. Patient has not had fever, chills, cough. He feels otherwise well. PFSH PFSH Medical History ADHD (attention deficit hyperactivity disorder) Anxiety Depression Smoker Home Medications lamotrigine 50 mg PO BID 01/14/21 [History Last Taken Unknown] risperidone 4 mg PO QHS 01/14/21 [History Last Taken Unknown] Allergy/AdvReac Type Severity Reaction Status Date / Time No Known Allergies Allergy Verified 09/11/21 20:24 Surgical History History of embolic filter insertion Social History household members: none housing: homeless Smoking Status: Current every day smoker tobacco type: cigarettes alcohol intake: current alcohol intake frequency: a few times a month substance use type: marijuana ROS ROS ED Constitutional Constitutional ED: Denies chills or fever(s) Eyes Eyes: Denies blurry vision or diplopia ENT ENT ED: Reports other Details: Tinnitus ; Denies rhinorrhea or sore throat Cardiovascular Cardiovascular: Reports chest pain and palpitations Respiratory/Chest Respiratory/Chest: Denies cough or dyspnea Gastrointestinal Gastrointestinal: Denies abdominal pain, nausea or vomiting Genitourinary Genitourinary ED: Denies dysuria or urinary frequency Musculoskeletal Musculoskeletal: Denies arthralgias or myalgias Integumentary Denies abscess or rash Neurologic Neurologic: Denies headache(s) or weakness Psychiatric Psychiatric: Denies anxiety or depression EXAM Physical Exam Const Vital Signs: 09/11/21 20:24 Temperature 96.5 F L Temperature Source Temporal Pulse Rate 78 Respiratory Rate 16 Blood Pressure 125/75 H Blood Pressure Mean 91 Pulse Ox 100 Oxygen Delivery Method Room Air Positive well nourished General Appearance ED: NAD; Negative for pallor HEENT Reports moist mucous membranes atraumatic and trauma Eyes PERRL and EOMs intact bilaterally Neck no lymphadenopathy Chest Wall inspection of chest normal and palpation of chest normal Resp normal respiratory effort and clear to auscultation bilaterally Cardio regular rate and regular rhythm GI soft to palpation and non-tender Neuro oriented x3, CN's II-XII intact bilaterally and no sensory deficits noted Speech: speech normal Motor Exam: strength 5/5 throughout Psych mental status grossly normal and thought process normal Skin General Skin Exam: Negative for jaundice or pallor Lesions: no lesions Rashes: no rashes MDM MDM MDM Narrative Medical decision making narrative: Patient presenting with anxiety and ringing in his ears as well as some mild chest discomfort from smoking medical marijuana and having anxiety. Patient's vital signs are stable he is afebrile. He has no history of cardiac disease and I have low suspicion for ACS because he is 20 years old. He has no family history of early heart disease. Patient is PERC negative. He is awake and alert. His vital signs are stable and he is afebrile. Lungs are clear to auscultation. Heart is regular rate and rhythm without murmur. Do not believe he needs lab work or imaging. I counseled him this is likely a side effect of him smoking medical marijuana. He request a ride home and for us to call his father. Impression: 1. Drug abuse Discharge Plan Triage Chief Complaint: Palpitations Other Complaint: Chest Pain ED Provider: Johnie Napier Dx/Rx/DC Orders Instructions: ED Drug Abuse Prescriptions: No Action risperidone 2 mg tablet 4 mg PO QHS RF: 0 lamotrigine 100 mg tablet 50 mg PO BID RF: 0 Primary Care Provider: Care Physician,No Primary Referrals: Care Physician,No Primary [Primary Care Provider] - Disposition Disposition: Home, Self Care
== END 2021-09-11 21:18 | disposition home or self-care (01) ==
LOC: ED 20:59
PROVIDERS: Emergency Provider Student in an Organized Health Care Education/Training Program; Visit Provider Student in an Organized Health Care Education/Training Program
DX: F12.10 Cannabis abuse, uncomplicated (principal); F17.210 Nicotine dependence, cigarettes, uncomplicated
CPT/HCPCS: 99284

== ENCOUNTER 2021-09-23 04:21 | Emergency (ER) | payer MEDICARE, MEDICAID, SELFPAY ==
[2021-09-23 04:22] VITALS: BP 133/74; PULSE 82; RESP 17; TEMP 36.4; O2SAT 99; BMI 22.5
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
[2021-09-23 05:09] VITALS: BP 131/87; PULSE 87; RESP 17; O2SAT 100
== END 2021-09-23 05:24 | disposition home or self-care (01) ==
PROVIDERS: Emergency Provider Emergency Medicine; Visit Provider Emergency Medicine
DX: B86 Scabies (principal); F32.A Depression, unspecified; F41.9 Anxiety disorder, unspecified; F17.210 Nicotine dependence, cigarettes, uncomplicated; Z79.899 Other long term (current) drug therapy
CPT/HCPCS: 99284

== ENCOUNTER 2021-09-25 07:21 | Emergency (ER) | payer MEDICARE, MEDICAID, SELFPAY ==
[2021-09-25 07:21] VITALS: BP 120/77; PULSE 80; RESP 16; TEMP 36.2; O2SAT 100; BMI 20.7
--- NOTE | 2021-09-25 07:44 | RAD_ITS ---
STUDY: X-RAY CHEST REASON FOR EXAM: Male, 20 years old. chest pain chest pain this am. previous chest pain issues related to drugs per patient TECHNIQUE: Frontal and lateral views of the chest COMPARISON: 05 January 2017 FINDINGS: The lungs are clear and expanded. There is no demonstrated pleural abnormality. Normal size heart. Normal mediastinum and chris. Normal visualized pulmonary arteries. Normal visualized aortic arch and descending thoracic aorta. Normal visualized thoracic spine. Normal visualized ribs, clavicles, and shoulders. There is no demonstrated abnormality of the visualized soft tissue structures of the upper abdomen. RAD/Chest PA and Lateral IMPRESSION: Normal x-ray examination of the chest. Electronically Signed: Cassie Hines MD at 8:24 EST ,
--- NOTE | 2021-09-25 07:46 | EX.ED.DYSGE1 ---
HPI History of Present Illness Chief Complaint: Chest Pain Informant: patient Narrative Narrative: Patient is a 20-year-old male with history of ADHD and autism presenting for chest discomfort. Patient states he smoked liquid THC that he got from a medical marijuana store last night. He notes he smoked more than normal. He started having chest pain. He states every time he smokes marijuana he gets very anxious and then has chest pain on the left side of his chest. He called EMS last night and at that time they signed him off and he stayed home. He called again this morning. He states when he woke up he felt fine but then started having the discomfort in his chest again. Denies any radiation of pain. Is more noticeable if he takes a deep breath but not changed by breathing. Denies any shortness of breath. Denies a history of DVT or PE. Denies any swelling of his lower extremities. Patient has had multiple EMS calls and multiple ER visits for the same complaint. He states that when he smokes or mono he tends to get paranoid. He notes that he calls EMS pretty much every time he smokes marijuana. Patient follows with [facility] for psychiatric care. He states he is on lamotrigine and risperidone. He notes he took those medicines this morning. Denies any cardiac history. No other complaints at this time. PFSH PFSH Medical History ADHD (attention deficit hyperactivity disorder) Anxiety Depression Smoker Home Medications lamotrigine [Lamictal] 50 mg PO BID 01/14/21 [History Last Taken Unknown] risperidone 4 mg PO QHS 01/14/21 [History Last Taken Unknown] hydroxyzine HCl 25 mg PO 4X/DAY PRN PRN #40 tab 09/23/21 [Rx Last Taken Unknown] permethrin 1 applic TOPICAL Q14D #60 g 09/23/21 [Rx Last Taken Unknown] Allergy/AdvReac Type Severity Reaction Status Date / Time No Known Allergies Allergy Verified 09/25/21 07:26 Surgical History History of embolic filter insertion Social History household members: none housing: homeless Smoking Status: Current every day smoker tobacco type: cigarettes alcohol intake: current alcohol intake frequency: a few times a month substance use type: marijuana ROS ROS ED Constitutional Constitutional ED: Denies chills or fever(s) Eyes Eyes: Denies change in vision ENT ENT ED: Denies rhinorrhea or sore throat Cardiovascular Cardiovascular: Reports chest pain Respiratory/Chest Respiratory/Chest: Denies cough or dyspnea Gastrointestinal Gastrointestinal: Denies abdominal pain, nausea or vomiting Musculoskeletal Musculoskeletal: Denies arthralgias or myalgias Integumentary Denies rash Neurologic Neurologic: Denies headache(s) or weakness Psychiatric Psychiatric: Reports anxiety; Denies depression, suicidal ideation or suicidal thoughts EXAM Physical Exam Const Vital Signs: 09/25/21 07:21 09/25/21 07:35 Temperature 97.1 F L Temperature Source Temporal Pulse Rate 80 Respiratory Rate 16 Respiratory Effort Normal Non-Labored Blood Pressure 120/77 Blood Pressure Mean 91 Pulse Ox 100 Oxygen Delivery Method Room Air Positive well nourished and well developed General Appearance ED: well developed HEENT Reports moist mucous membranes Negative for trauma Eyes PERRL and EOMs intact bilaterally Neck supple and no JVD Chest Wall inspection of chest normal and palpation of chest normal Resp normal respiratory effort and clear to auscultation bilaterally Cardio regular rate, regular rhythm and no murmurs GI normal to inspection, nondistended, normoactive bowel sounds and non-tender Palpation: soft Neuro oriented x3 Neuro Narrative: No focal deficits appreciated Sensorium / Orientation: alert Psych mental status grossly normal Psych Narrative: No SI or HI Mood & Affect: Negative for depressed, anxious or tearful Skin no rashes or lesions noted MDM MDM MDM Narrative Medical decision making narrative: Patient evaluated for left-sided chest discomfort after smoking marijuana. He has been seen multiple times for the same complaint. Reviewed seem to his marijuana from license dispensary so low likelihood for contamination with another drug. EKG is normal. Will obtain a chest x-ray to rule out any pneumothorax, pneumomediastinum, infiltrate or cardiomegaly. Patient is PE negative. Given his age and history I suspect this is psychiatric related related to his drug use and not cardiac in nature. I do not suspect ACS. Patient is counseled that if he has a ride to the ER or access to a ride he should utilize them instead of repeatedly utilizing EMS if possible. Counseled on emergent reasons to use EMS. Encouraged to abstain from marijuana as it seems to be a clear and distinct trigger. Chest x-ray 2 views chest interpreted by myself shows no acute process. Rhythm Strip Rhythm Strip: Sinus Rhythm Rate: 73 Ectopy: None EKG Initial EKG: Attestation: I personally reviewed and interpreted this EKG as follows: Interpretation: Sinus Arrythmia Comments: Normal sinus rhythm with sinus arrhythmia Rate of 73 Normal intervals Normal axis No changes consistent with Brugada syndrome, prolonged [place] interval, WPW or HOCM Discharge Plan Triage Chief Complaint: Chest Pain ED Provider: Yasmeen Goldman Dx/Rx/DC Orders Clinical Impression: Marijuana abuse, Atypical chest pain, Anxiety Instructions: ED Anxiety Reaction, ED Chest Pain, Noncardiac, ED Marijuana Abuse Prescriptions: No Action risperidone 2 mg tablet 4 mg PO QHS RF: 0 lamotrigine [Lamictal] 100 mg tablet 50 mg PO BID RF: 0 hydroxyzine HCl 25 mg tablet 25 mg PO 4X/DAY PRN PRN (Reason: itching) Qty: 40 RF: 0 permethrin 5 % cream 1 applic topical Q14D Qty: 60 RF: 0 Primary Care Provider: Care Physician,No Primary Referrals: Counseling,Center [GROUP OF PHYSICIANS] - Care Physician,No Primary [Primary Care Provider] - Disposition Disposition: Home, Self Care
--- NOTE | 2021-09-25 07:58 | EKG12_ITS ---
Test Reason : CP Blood Pressure : / mmHG Vent. Rate : 073 BPM Atrial Rate : 073 BPM P-R Int : 124 ms QRS Dur : 098 ms QT Int : 366 ms P-R-T Axes : 004 084 064 degrees QTc Int : 403 ms Normal sinus rhythm with sinus arrhythmia Normal ECG Confirmed by SIOBHAN VARGHESE, DEAN ([id number]), editor sound JESSICA MOSCOSO ([id number]) on 09/29/2021 12:36:43 P M Referred By: TONA Confirmed By:CARLEEN MCCANN MD
[2021-09-25 08:10] VITALS: RESP 16
== END 2021-09-25 08:11 | disposition home or self-care (01) ==
LOC: ED 08:04
PROVIDERS: Emergency Provider Emergency Medicine; Visit Provider Emergency Medicine
DX: R07.89 Other chest pain (principal); F41.9 Anxiety disorder, unspecified; F12.10 Cannabis abuse, uncomplicated; F84.0 Autistic disorder; F90.9 Attention-deficit hyperactivity disorder, unspecified type; F32.A Depression, unspecified; Z79.899 Other long term (current) drug therapy; F17.210 Nicotine dependence, cigarettes, uncomplicated
CPT/HCPCS: 71046; 93005; 99284

== ENCOUNTER 2021-10-07 18:56 | Emergency (ER) | payer MEDICARE, MEDICAID, SELFPAY ==
[2021-10-07 18:57] VITALS: BP 120/67; PULSE 81; RESP 16; TEMP 36; O2SAT 99; BMI 19.2
--- NOTE | 2021-10-07 19:15 | EX.ED.DYSGE1 ---
HPI History of Present Illness Chief Complaint: Substance Abuse Narrative Narrative: Patient started feeling strange after smoking marijuana. He thinks it may be laced with something. He has some anxiety from it. He has no shortness of breath no fevers or chills. No cough or congestion. He is feeling slightly better. PFSH PFSH Medical History ADHD (attention deficit hyperactivity disorder) Anxiety Depression Smoker Home Medications lamotrigine [Lamictal] 50 mg PO BID 01/14/21 [History Last Taken Unknown] risperidone 4 mg PO QHS 01/14/21 [History Last Taken Unknown] hydroxyzine HCl 25 mg PO 4X/DAY PRN PRN #40 tab 09/23/21 [Rx Last Taken Unknown] permethrin 1 applic TOPICAL Q14D #60 g 09/23/21 [Rx Last Taken Unknown] Allergy/AdvReac Type Severity Reaction Status Date / Time No Known Allergies Allergy Verified 09/25/21 07:26 Surgical History History of embolic filter insertion Social History household members: none housing: homeless Smoking Status: Current every day smoker tobacco type: cigarettes alcohol intake: current alcohol intake frequency: a few times a month substance use type: marijuana ROS ROS ED ROS Narrative Past medical history: Reviewed, includes psychiatric disease Medications: Reviewed Social history: Noncontributory Review of systems: All systems negative except as indicated General: No fever Eyes: No visual changes ENT: No upper airway congestion, normal voice Neck: No neck pain Cardiovascular: No chest pain Respiratory: No shortness of breath or cough Gastrointestinal: No abdominal pain, nausea vomiting or diarrhea Musculoskeletal: Denies myalgias no difficulty with ambulation Skin: No rash Neurological: No memory loss, confusion or any focal weakness Psych: Anxious Hematologic: No easy bleeding or easy bruising EXAM Physical Exam Narrative Exam Narrative: Physical exam General: Patient appears quite anxious. Head: Normocephalic, Atraumatic Eyes: Conjunctiva not pale ENT: Moist mucous membranes Neck: Supple, Nontender, No lymphadenopathy Cardiovascular: Regular rate, Regular rhythm Respiratory: No distress, CTA bilaterally Abdomen: Soft, Nontender, Nondistended Back: Nontender, Normal Inspection. Negative for: CVA tenderness Extremities: Nontender, No edema Skin: Normal color, No rash Neurological: Alert, Normal Strength, Normal Sensation Psychological: He does have a bizarre affect, however he is lucid coherent, he has no suicidal ideations, his thought processes reasonable today. Const Vital Signs: 10/07/21 18:57 Temperature 96.8 F L Temperature Source Temporal Pulse Rate 81 Respiratory Rate 16 Blood Pressure 120/67 Blood Pressure Mean 84 Pulse Ox 99 Oxygen Delivery Method Room Air MDM MDM MDM Narrative Medical decision making narrative: Patient was given Vistaril I reassured him he appears well discharged in stable condition he was warned about marijuana use especially that he does not know where it came from. Discharge Plan Triage Chief Complaint: Substance Abuse ED Provider: Dimitry Arroyo Dx/Rx/DC Orders Clinical Impression: Adverse drug reaction, Drug abuse Instructions: ED Drug Abuse, ED Drug Reaction, Other Prescriptions: No Action risperidone 2 mg tablet 4 mg PO QHS RF: 0 lamotrigine [Lamictal] 100 mg tablet 50 mg PO BID RF: 0 hydroxyzine HCl 25 mg tablet 25 mg PO 4X/DAY PRN PRN (Reason: itching) Qty: 40 RF: 0 permethrin 5 % cream 1 applic topical Q14D Qty: 60 RF: 0 Primary Care Provider: Care Physician,No Primary Referrals: Care Physician,No Primary [Primary Care Provider] - 3-5 Days Disposition Disposition: Home, Self Care
[2021-10-07] MEDS: hydrOXYzine 50 MG/ML Vial IM (19:25)
== END 2021-10-07 19:25 | disposition home or self-care (01) ==
PROVIDERS: Emergency Provider Emergency Medicine; Visit Provider Emergency Medicine
DX: F41.9 Anxiety disorder, unspecified (principal); T40.715A Adverse effect of cannabis, initial encounter; F12.10 Cannabis abuse, uncomplicated; F17.210 Nicotine dependence, cigarettes, uncomplicated; Z59.00 Homelessness unspecified
CPT/HCPCS: 99283

== ENCOUNTER 2021-10-09 15:10 | Emergency (ER) | payer MEDICARE, MEDICAID, SELFPAY ==
[2021-10-09 15:11] VITALS: BP 112/66; PULSE 104; RESP 18; TEMP 36.6; O2SAT 98; BMI 21.5
--- NOTE | 2021-10-09 15:26 | EX.ED.DYSGE1 ---
HPI History of Present Illness Chief Complaint: General Illness Informant: patient Narrative Narrative: Patient presents secondary to anxiety and mild chest pain after smoking marijuana. Patient states that when he smokes marijuana he tends to make him anxious and he gets chest pain. He has been here from the same complaint multiple times in the past. Patient believes that the marijuana is interacting with his risperidone and Lamictal that he takes. PFSH PFSH Medical History ADHD (attention deficit hyperactivity disorder) Anxiety Depression Marijuana use Smoker Home Medications lamotrigine [Lamictal] 50 mg PO BID 01/14/21 [History Last Taken Unknown] risperidone 4 mg PO QHS 01/14/21 [History Last Taken Unknown] Allergy/AdvReac Type Severity Reaction Status Date / Time No Known Allergies Allergy Verified 10/09/21 15:13 Surgical History History of embolic filter insertion Social History household members: none housing: homeless Smoking Status: Current every day smoker tobacco type: cigarettes alcohol intake: current alcohol intake frequency: a few times a month substance use type: marijuana ROS ROS ED Constitutional Constitutional ED: Denies chills or fever(s) Eyes Eyes: Denies blurry vision or change in vision ENT ENT ED: Denies ear pain or rhinorrhea Cardiovascular Cardiovascular: Reports chest pain; Denies palpitations or racing heartbeat Respiratory/Chest Respiratory/Chest: Denies cough or dyspnea Gastrointestinal Gastrointestinal: Denies abdominal pain, nausea or vomiting Musculoskeletal Musculoskeletal: Denies back pain or neck pain Integumentary Denies rash Neurologic Neurologic: Denies headache(s) Psychiatric Psychiatric: Reports anxiety Allergic/Immunologic Allergic/Immunologic ED: Denies urticaria EXAM Physical Exam Const Vital Signs: 10/09/21 15:11 10/09/21 15:25 Temperature 98 F Temperature Source Temporal Pulse Rate 104 H Respiratory Rate 18 Respiratory Effort Normal Non-Labored Respiratory Pattern Normal Blood Pressure 112/66 Blood Pressure Mean 81 Pulse Ox 98 Oxygen Delivery Method Room Air Positive well nourished and well developed General Appearance ED: well developed HEENT Reports moist mucous membranes Eyes PERRL and EOMs intact bilaterally Neck supple Chest Wall inspection of chest normal and palpation of chest normal Resp normal respiratory effort and clear to auscultation bilaterally Cardio regular rate and regular rhythm GI non-tender Palpation: soft Neuro oriented x3 Sensorium / Orientation: alert Psych mental status grossly normal Skin no rashes or lesions noted MDM MDM MDM Narrative Medical decision making narrative: Patient's prior visits for similar complaints is reviewed. Patient given p.o. Vistaril here. Treatment and Re-Evaluation Comments:: Short time after patient's medications were given he told the nurse that his ride was on the way and he felt comfortable with discharge to home. I do not feel patient needs further work-up at this time. Discharge Plan Triage Chief Complaint: General Illness ED Provider: Annie Henley Dx/Rx/DC Orders Clinical Impression: Marijuana use, Anxiety Instructions: ED Anxiety Reaction Prescriptions: No Action risperidone 2 mg tablet 4 mg PO QHS RF: 0 lamotrigine [Lamictal] 100 mg tablet 50 mg PO BID RF: 0 Primary Care Provider: Care Physician,No Primary Referrals: Aury Smallwood MD [STAFF PHYSICIAN] - Care Physician,No Primary [Primary Care Provider] - Disposition Disposition: Home, Self Care Discharge Date/Time: 10/09/21 15:52
[2021-10-09] MEDS: hydrOXYzine PAM 25 MG Capsule PO (15:28)
== END 2021-10-09 15:52 | disposition home or self-care (01) ==
PROVIDERS: Emergency Provider Emergency Medicine; Visit Provider Emergency Medicine
DX: F12.90 Cannabis use, unspecified, uncomplicated (principal); F41.9 Anxiety disorder, unspecified; F17.210 Nicotine dependence, cigarettes, uncomplicated; Z59.00 Homelessness unspecified; Z79.899 Other long term (current) drug therapy
CPT/HCPCS: 99283

== ENCOUNTER → 2021-10-25 09:58 | Outpatient (CLI) | payer MEDICARE, MEDICAID, SELFPAY ==
[2021-10-25 10:57] LABS: Absolute Lymphocyte Count 1.26 X10^3/uL (0.83-4.51); Absolute Neutrophil Count 4.4 X10^3/uL (2.0-7.7); Basophil# 0.04 X10^3/uL; Basophil% 0.6 % (0-1); Eosinophil# 0.22 X10^3/uL; Eosinophils% 3.5 % (0-5); Hematocrit 46.1 % (40-54); Hemoglobin 15.6 g/dL (13.0-16.5); Lymphocyte # 1.26 X10^3/ul (0.83-4.51); Lymphocyte % 19.8 % (19-41); Mean Corp Hgb Conc 33.8 g/dL (32-36); Mean Corpuscular Hgb 33.5 pg (27.0-32.0); Mean Corpuscular Volume 99.1 fL (80-94); Mean Platelet Vol. 10.3 fl (6.2-12.0); Monocyte% 6.3 % (0-10); NRBC Flagged by Analyzer 0 % (0-5); Neutrophil # 4.41 X10^3/uL (2.7-7.7); Neutrophil % 69.5 % (47-70); Platelet Count 141 K/mm3 (150-450); RBC Distribution Width CV 12.1 % (11.6-14.6); RBC Distribution Width SD 44.2 fl (35.1-43.9); Red Blood Count 4.65 M/mm3 (4.6-6.2); White Blood Count 6.4 K/mm3 (4.4-11.0)
[2021-10-25 11:07] LABS: Amphetamine Urine VISTA NEGATIVE (<1000 ng/mL); Barbiturate Urine VISTA NEGATIVE (< 200 ng/mL); Benzodiazepine Urine VISTA NEGATIVE (< 200 ng/mL); Cocaine Urine VISTA NEGATIVE (< 300 ng/mL); Ecstacy Urine VISTA NEGATIVE (< 500 ng/mL); Methadone Urine VISTA NEGATIVE (< 300 ng/mL); PCP Urine VISTA NEGATIVE (< 25 ng/mL); THC Urine VISTA NEGATIVE (< 50 ng/mL); Vista UDS pH Range 5
[2021-10-25 11:22] LABS: Hemoglobin A1c 4.9 % (3.8-5.6)
[2021-10-25 14:25] LABS: ALB/GLOB Ratio 1.5 RATIO (0.9-2.4); AST(SGOT) 19 U/L (15-37); Alanine Aminotransfer ALT/SGPT 19 U/L (16-61); Albumin, Serum 4.6 g/dL (3.2-5.0); Alkaline Phosphatase 94 U/L (45-117); Anion Gap 1 (5-15); BUN 16 mg/dL (7-18); BUN/Creat Ratio 14.4 RATIO (10-20); Calcium,Total 9.2 mg/dL (8.5-10.1); Chloride 106 mmol/L (98-107); Cholesterol 152 mg/dL (200); Creatinine, Serum 1.11 mg/dL (0.70-1.30); EST Glomerular Filtration Rate 88 mL/min (>60); Est Glom Filt Rate - Afr Amer 107 mL/min (>60); Globulin 3.1 g/dL (2.2-4.2); Glucose 87 mg/dL (74-106); High Density Lipoprotein 58 mg/dL; Potassium 4.3 mmol/L (3.5-5.1); Prolactin 4.8 ng/mL; Protein, Total 7.7 g/dL (6.4-8.2); Sodium Level 138 mmol/L (136-145); Thyroid Stim Hormone (TSH) 1.36 uIU/mL (0.358-3.74); Triglycerides 130 mg/dL; Very Low Density Lipoprotein 26 mg/dL (5-40)
== END ==
DX: F84.0 Autistic disorder (principal); F12.99 Cannabis use, unspecified with unspecified cannabis-induced disorder; Z79.899 Other long term (current) drug therapy
CPT/HCPCS: 36415; 80053; 80061; 80307; 83036; 84146; 84443; 85025

== ENCOUNTER 2022-01-10 22:41 | Emergency (ER) | payer MEDICARE, MEDICAID, SELFPAY ==
[2022-01-10 22:42] VITALS: BP 122/74; PULSE 74; RESP 18; TEMP 36.9; O2SAT 100; BMI 21.1
--- NOTE | 2022-01-10 23:12 | EX.ED.DYSGE1 ---
HPI History of Present Illness Chief Complaint: Anxiety Informant: patient Narrative Narrative: Brought in by EMS from home reports concerns for smoking too much marijuana. He lives by himself in an apartment currently. He states he smoked in a park by himself. He reports symptoms of overly high. He denies suicidal homicidal ideations. History of ADHD autism and anxiety. He is on Risperdal and Lamictal. This is occurred in the past. He states it must of been a stronger substance that he use. Denies alcohol use. Denies any other substances. Prior similar symptoms: Yes PFSH PFSH Medical History ADHD (attention deficit hyperactivity disorder) Anxiety Depression Marijuana use Smoker Home Medications lamotrigine [Lamictal] 50 mg PO BID 01/14/21 [History Last Taken Unknown] risperidone 4 mg PO QHS 01/14/21 [History Last Taken Unknown] Allergy/AdvReac Type Severity Reaction Status Date / Time No Known Allergies Allergy Verified 10/09/21 15:13 Surgical History History of embolic filter insertion Social History household members: none housing: homeless Smoking Status: Current every day smoker tobacco type: cigarettes alcohol intake: current alcohol intake frequency: a few times a month substance use type: marijuana ROS ROS ED Constitutional Constitutional ED: Denies chills, fever(s) or sweats Eyes Eyes: Denies change in vision ENT ENT ED: Denies dysphagia or sore throat Cardiovascular Cardiovascular: Denies chest pain, leg edema, palpitations or racing heartbeat Respiratory/Chest Respiratory/Chest: Denies cough, dyspnea or dyspnea on exertion Gastrointestinal Gastrointestinal: Denies abdominal pain, diarrhea, nausea or vomiting Genitourinary Genitourinary ED: Denies dysuria, hematuria or urinary frequency Musculoskeletal Musculoskeletal: Denies back pain, extremity pain or neck pain Integumentary Denies rash or wounds Neurologic Neurologic: Denies headache(s), paresthesias or weakness Psychiatric Psychiatric: Denies suicidal ideation or suicidal thoughts EXAM Physical Exam Const Vital Signs: 01/10/22 22:42 Temperature 98.4 F Temperature Source Temporal Pulse Rate 74 Respiratory Rate 18 Blood Pressure 122/74 H Blood Pressure Mean 90 Pulse Ox 100 Oxygen Delivery Method Room Air Positive well nourished and well developed Constitutional Narrative: Slightly slow on speech however no slurring, cooperative. Nontoxic. General Appearance ED: well developed and NAD HEENT Reports moist mucous membranes normocephalic and atraumatic Eyes PERRL, EOMs intact bilaterally and conjunctivae normal General Eye ED: Yes normal appearance of both eyes Neck no lymphadenopathy and supple General: Negative for tenderness Chest Wall Chest: Negative for tenderness Resp normal respiratory effort and normal air movement Effort and Inspection: symmetric chest movement; Negative for respiratory distress Cardio regular rate, regular rhythm and no murmurs Peripheral Pulses: pulses 2+ throughout GI normal to inspection, nondistended, normoactive bowel sounds and non-tender Palpation: Negative for guarding or rebound tenderness present Back/Spine no CVA tenderness and no thoracic nor lumbar tenderness Extremity normal to inspection General Extremety ED: Negative for edema or tenderness General Extremity: Negative for edema Neuro oriented x3 and no sensory deficits noted Sensorium / Orientation: awake and alert Skin no rashes or lesions noted and no wounds MDM MDM MDM Narrative Medical decision making narrative: Patient's vital stable. Apparently has had similar reactions in the past. He denies suicidal homicidal ideations. Discussed adverse effects to his marijuana use. Discussed refraining from this. Patient's father was contacted who will pick him up. Discharge Plan Triage Chief Complaint: Anxiety ED Provider: Merritt Bonilla Dx/Rx/DC Orders Clinical Impression: Marijuana use, ADHD, Anxiety Instructions: Understanding Marijuana Abuse, ED Anxiety Reaction Prescriptions: No Action risperidone 2 mg tablet 4 mg PO QHS RF: 0 lamotrigine [Lamictal] 100 mg tablet 50 mg PO BID RF: 0 Primary Care Provider: Care Physician,No Primary Referrals: Care Physician,No Primary [Primary Care Provider] - Activity Restrictions/Additional Instructions: Refrain from using marijuana if you do not want to have the symptoms. Disposition Disposition: Home, Self Care
== END 2022-01-10 23:15 | disposition home or self-care (01) ==
PROVIDERS: Emergency Provider Emergency Medicine; Visit Provider Emergency Medicine
DX: F12.90 Cannabis use, unspecified, uncomplicated (principal); F90.9 Attention-deficit hyperactivity disorder, unspecified type; F41.9 Anxiety disorder, unspecified; F17.210 Nicotine dependence, cigarettes, uncomplicated; Z59.00 Homelessness unspecified
CPT/HCPCS: 99284

== ENCOUNTER 2022-11-25 11:08 | Emergency (ER) | payer MEDICARE, MEDICAID, SELFPAY ==
[2022-11-25 11:09] VITALS: BP 109/91; PULSE 95; RESP 16; TEMP 36.3; O2SAT 97
--- NOTE | 2022-11-25 11:18 | EX.ED.DYSGE1 ---
HPI History of Present Illness Chief Complaint: Med Refill Narrative Narrative: 22-year-old male here for medication refill. States his primary care physician is not in town and as such she cannot obtain [facility] Medical History ADHD (attention deficit hyperactivity disorder) Anxiety Depression Marijuana use Smoker Home Medications lamotrigine 100 mg tablet (Lamictal) 50 mg PO BID 01/14/21 [History Last Taken Unknown] risperidone 2 mg tablet 4 mg PO QHS 01/14/21 [History Last Taken Unknown] lamotrigine 200 mg tablet 200 mg PO DAILY #60 tabs 11/25/22 [Rx Last Taken Unknown] risperidone 4 mg tablet 6 mg PO DAILY #60 tabs 11/25/22 [Rx Last Taken Unknown] Allergy/AdvReac Type Severity Reaction Status Date / Time No Known Allergies Allergy Verified 11/25/22 11:13 Surgical History History of embolic filter insertion Social History household members: none housing: homeless Smoking Status: Current every day smoker tobacco type: cigarettes alcohol intake: current alcohol intake frequency: a few times a month substance use type: marijuana ROS ROS ED ROS Narrative Constitutional: Denies fever HEENT: Denies sore throat Neck: Denies neck pain Cardiovascular: Denies chest pain, syncope Respiratory: Denies shortness of breath GI: Denies nausea vomiting or abdominal pain : Denies changes in urinary habits Musculoskeletal: Denies muscle or joint pain Neurologic: Denies numbness weakness or loss of sensation Skin denies rash EXAM Physical Exam Narrative Exam Narrative: Nursing triage notes reviewed, Vital signs reviewed Constitutional: please see mdm HENT: MMM Eyes: Pupils equal round and reactive to light, Extraocular muscles intact Neck: No stridor, no JVD, full neck ROM Lungs: Clear to auscultation, No wheezing or rales. No increased work of breathing, no conversational dyspnea, no accessory muscle use, no nasal flaring. No respiratory distress noted Heart: Regular rate and rhythm, No murmurs, No rubs and No gallops, 2+ distal pulses (radial, femoral, posterior tibial) in all extremities Abdomen: Soft, there is no tenderness, rigidity, rebound or guarding, no obvious peritoneal signs, no palpable pulsatile abdominal masses, no auscultated abdominal bruit : No CVAT Extremities: No edema Neuro: No focal neurological deficits, cranial nerves II through XII intact, 5/5 strength in all extremities. Intact sensation to light touch in all extremities, 2+ reflexes bilateral patella dens. Normal gait. No ataxia. Skin: No rash or lesions noted Const Vital Signs: 11/25/22 11:09 Temperature 97.4 F L Temperature Source Temporal Pulse Rate 95 Respiratory Rate 16 Blood Pressure 109/91 H Blood Pressure Mean 97 Pulse Ox 97 Oxygen Delivery Method Room Air MDM MDM MDM Narrative Medical decision making narrative: Chief Complaint: Medication refill External records reviewed: On Lamictal, Risperdal MDM: The patient was hemodynamically stable, afebrile, nontoxic-appearing. Patient had no medical complaints. Provided patient with requested medications (Risperdal, lamotrigine). Gave PCP follow-up. Factors affecting care: History of depression, anxiety and mood disorder Social determinants of health: Undomiciled History obtained from others: None Shared decision making: I will have a discussion with the patient and or visitors regarding risk/benefits of further testing or admission. They will be made aware of of the risk/benefits inherent in this decision they will be given the opportunity to voice understanding. Consults: None Discharge Plan Triage Chief Complaint: Med Refill ED Provider: Maulik Lopez Dx/Rx/DC Orders Clinical Impression: Medication refill Prescriptions: New risperidone 4 mg tablet 6 mg PO DAILY Qty: 60 0RF lamotrigine 200 mg tablet 200 mg PO DAILY Qty: 60 0RF No Action risperidone 2 mg tablet 4 mg PO QHS Label Comments: TAKE 2 TABLETS BY MOUTH EVERY MORNING lamotrigine [Lamictal] 100 mg tablet 50 mg PO BID Label Comments: TAKE 1/2 (ONE-HALF) OF A TABLET BY MOUTH TWICE DAILY Stand Alone Forms: ED Work / School Excuse Primary Care Provider: Care Physician,No Primary Referrals: Care Physician,No Primary [Primary Care Provider] - Activity Restrictions/Additional Instructions: Thank you for trusting us with your care today! Please follow-up with your primary care physician in the next billable appointment for outpatient evaluation and ongoing prescription management. Please return to the emergency department if your symptoms change or worsen. Please follow with your primary care physician for further outpatient evaluation and management. Disposition Disposition: Home, Self Care
[2022-11-25 11:40] VITALS: BMI 21.7
[2022-11-25] MEDS: RisperiDONE 2 MG Tablet 6 MG PO (11:41)
[2022-11-25] MEDS: lamoTRIgine 100 MG Tablet 50 MG PO (11:41)
[2022-11-25] MEDS: lamoTRIgine 150 MG Tablet PO (11:41)
== END 2022-11-25 12:02 | disposition home or self-care (01) ==
LOC: ED 11:57
PROVIDERS: Emergency Provider Emergency Medicine; Referring Provider Emergency Medicine; Visit Provider Emergency Medicine
DX: Z76.0 Encounter for issue of repeat prescription (principal); F17.210 Nicotine dependence, cigarettes, uncomplicated; Z59.00 Homelessness unspecified
CPT/HCPCS: 99282

== ENCOUNTER 2023-01-11 18:32 | Emergency (ER) | payer MEDICARE, MEDICAID, SELFPAY ==
[2023-01-11 18:34] VITALS: BP 121/79; PULSE 66; RESP 16; TEMP 36.8; O2SAT 99
[2023-01-11 18:36] VITALS: BMI 18.9
--- NOTE | 2023-01-11 19:10 | EX.ED.DYSGE1 ---
HPI History of Present Illness Chief Complaint: Med Refill Informant: patient Onset/Context/Timing Onset: Today Context: Gradual Onset Timing: Continuous Worsened by: Nothing Relieved by: Nothing Narrative Narrative: Patient presents requesting medication refill. Patient states that he was seen here 2 months ago for refills of his Lamictal and risperidone. Patient states he is now out of those. Patient states he is trying to make an appointment at the counseling center with a new primary care physician. Patient states that he has since run out of his medications and cannot get a prescription from a new primary care physician until after he sees them. Patient states his last dose was yesterday. Patient denies any suicidal or homicidal ideations. Patient denies any chest pain or shortness of breath. Patient denies any symptoms. PFSH PFSH Medical History ADHD (attention deficit hyperactivity disorder) Anxiety Depression Marijuana use Smoker Home Medications lamotrigine 100 mg tablet (Lamictal) 50 mg PO BID 01/14/21 [History Last Taken Unknown] risperidone 2 mg tablet 4 mg PO QHS 01/14/21 [History Last Taken Unknown] lamotrigine 200 mg tablet 200 mg PO DAILY #30 tabs 01/11/23 [Rx Last Taken Unknown] risperidone 4 mg tablet 6 mg PO DAILY 30 days #30 tabs 01/11/23 [Rx Last Taken Unknown] Allergy/AdvReac Type Severity Reaction Status Date / Time No Known Allergies Allergy Verified 01/11/23 18:33 Surgical History History of embolic filter insertion Social History household members: none housing: homeless Smoking Status: Current every day smoker tobacco type: cigarettes alcohol intake: current alcohol intake frequency: a few times a month substance use type: marijuana ROS ROS ED Constitutional Constitutional ED: Denies chills or fever(s) Eyes Eyes: Denies blurry vision or change in vision ENT ENT ED: Denies rhinorrhea or sore throat Cardiovascular Cardiovascular: Denies chest pain or palpitations Respiratory/Chest Respiratory/Chest: Denies cough or dyspnea Gastrointestinal Gastrointestinal: Denies nausea or vomiting Genitourinary Genitourinary ED: Denies dysuria or hematuria Musculoskeletal Musculoskeletal: Denies back pain or neck pain Integumentary Denies abscess or rash Neurologic Neurologic: Denies headache(s) or weakness Allergic/Immunologic Allergic/Immunologic ED: Denies mouth swelling or urticaria EXAM Physical Exam Const Vital Signs: 01/11/23 18:34 01/11/23 18:36 01/11/23 19:32 Temperature 98.2 F Temperature Source Temporal Pulse Rate 66 74 Respiratory Rate 16 16 Respiratory Effort Normal Respiratory Pattern Normal Blood Pressure 121/79 H 120/71 Blood Pressure Mean 93 Pulse Ox 99 98 Oxygen Delivery Method Room Air Positive well nourished and well developed General Appearance ED: well developed HEENT Reports moist mucous membranes Neck supple and no JVD Resp normal respiratory effort and clear to auscultation bilaterally Cardio regular rate, regular rhythm and no murmurs GI normal to inspection, nondistended, normoactive bowel sounds and non-tender Palpation: soft Extremity normal to inspection General Extremety ED: Negative for edema or tenderness General Extremity: Negative for edema Neuro oriented x3, CN's II-XII intact bilaterally and no sensory deficits noted Sensorium / Orientation: alert Motor Exam: strength 5/5 throughout Psych mental status grossly normal Skin no rashes or lesions noted MDM MDM MDM Narrative Medical decision making narrative: Patient was given refills for his Lamictal and risperidone for 1 month. Patient was instructed to follow-up with his new primary care physician within the next month. Patient was advised that he will not be able to continue to come to the emergency department for refills of his medications. Patient understands and is agreeable with the plan. All questions were answered. Discharge Plan Triage Chief Complaint: Med Refill ED Provider: Adelso Post Dx/Rx/DC Orders Clinical Impression: Encounter for medication refill, ADHD Instructions: Med Refill Prescriptions: Continued lamotrigine 200 mg tablet 200 mg PO DAILY Qty: 30 0RF risperidone 4 mg tablet 6 mg PO DAILY 30 Days Qty: 30 0RF No Action risperidone 2 mg tablet 4 mg PO QHS Label Comments: TAKE 2 TABLETS BY MOUTH EVERY MORNING lamotrigine [Lamictal] 100 mg tablet 50 mg PO BID Label Comments: TAKE 1/2 (ONE-HALF) OF A TABLET BY MOUTH TWICE DAILY Primary Care Provider: Care Physician,No Primary Referrals: Counseling,Center [Group of Physicians] - 1-2 Weeks Care Physician,No Primary [Primary Care Provider] - Disposition Disposition: Home, Self Care Discharge Date/Time: 01/11/23 19:33
[2023-01-11 19:32] VITALS: BP 120/71; PULSE 74; RESP 16; O2SAT 98
== END 2023-01-11 19:33 | disposition home or self-care (01) ==
PROVIDERS: Emergency Provider Emergency Medicine; Visit Provider Emergency Medicine
DX: Z76.0 Encounter for issue of repeat prescription (principal); F90.9 Attention-deficit hyperactivity disorder, unspecified type; Z59.00 Homelessness unspecified; F17.210 Nicotine dependence, cigarettes, uncomplicated; Z79.899 Other long term (current) drug therapy
CPT/HCPCS: 99282

== ENCOUNTER 2023-02-06 11:34 | Emergency (ER) | payer MEDICARE, MEDICAID, SELFPAY ==
[2023-02-06 11:35] VITALS: BP 98/66; PULSE 76; RESP 16; TEMP 36.6; O2SAT 98; BMI 21.3
--- NOTE | 2023-02-06 12:57 | EDS_ITS ---
HPI History of Present Illness Chief Complaint: Med Refill Informant: patient Narrative Narrative: 22-year-old male history of ADHD anxiety and depression. Currently has no primary care physician is set up to see counseling center mid-month. He wants his Lamictal and risperidone refilled. He has had prior ER visits for the same. He denies any other complaints. Prior similar symptoms: Yes Recent Illness/Hospitalization: No PFSH PFSH Medical History ADHD (attention deficit hyperactivity disorder) Anxiety Depression Marijuana use Smoker Home Medications lamotrigine 100 mg tablet (Lamictal) 50 mg PO BID 01/14/21 [History Last Taken Unknown] risperidone 2 mg tablet 4 mg PO QHS 01/14/21 [History Last Taken Unknown] lamotrigine 200 mg tablet 200 mg PO DAILY #30 tabs 01/11/23 [Rx Last Taken Unknown] risperidone 4 mg tablet 6 mg (1.5 x 4 mg) PO DAILY 30 days #30 tabs 01/11/23 [Rx Last Taken Unknown] lamotrigine 200 mg tablet (Lamictal) 200 mg PO DAILY 30 days #30 tabs 02/06/23 [Rx Last Taken Unknown] risperidone 4 mg tablet 4 mg PO QHS #30 tabs 02/06/23 [Rx Last Taken Unknown] Allergy/AdvReac Type Severity Reaction Status Date / Time No Known Allergies Allergy Verified 02/06/23 11:37 Surgical History History of embolic filter insertion Social History household members: none housing: homeless Smoking Status: Current every day smoker tobacco type: cigarettes alcohol intake: current alcohol intake frequency: a few times a month substance use type: marijuana ROS ROS ED ROS Narrative Denies recent illness. Review of Systems ROS Unobtainable: Denies due to encephalopathy Constitutional Constitutional ED: Denies chills or fever(s) Eyes Eyes: Denies blurry vision ENT ENT ED: Denies ear pain Cardiovascular Cardiovascular: Denies chest pain Respiratory/Chest Respiratory/Chest: Denies cough Gastrointestinal Gastrointestinal: Denies abdominal pain Musculoskeletal Musculoskeletal: Denies arthralgias Integumentary Denies abscess Neurologic Neurologic: Denies headache(s) Psychiatric Psychiatric: Denies suicidal ideation Endocrine Endocrinology: Denies cold intolerance Hematologic/Lymphatic Hematologic/Lymphatic: Reports none Allergic/Immunologic Allergic/Immunologic ED: Denies mouth swelling or tongue swelling EXAM Physical Exam Narrative Exam Narrative: Well-appearing 22-year-old male no acute distress. Vital signs stable afebrile. Sitting in a chair easily transferred to the bed. H EENT exam unremarkable. Neck nontender no lymphadenopathy. Lungs clear to auscultation bilaterally. Heart regular rhythm no murmur rate about 75. Chest wall nontender. Abdomen soft nontender. Moving all 4 extremities. Nontender no edema. Neurologically is awake and alert answering questions following commands. Const Vital Signs: 02/06/23 11:35 02/06/23 12:11 Temperature 97.8 F Temperature Source Temporal Pulse Rate 76 Respiratory Rate 16 Respiratory Effort Normal Respiratory Pattern Normal Blood Pressure 98/66 Blood Pressure Mean 76 Pulse Ox 98 Oxygen Delivery Method Room Air Positive well nourished and well developed; Negative for obese, cachectic, contractures or unkempt General Appearance ED: well developed and NAD; Negative for unkempt, cachectic, contractures, cyanotic, diaphoretic or pallor Nutritional Appearance: Negative for cachectic or obese HEENT Reports moist mucous membranes; Denies dry mucous membranes Negative for trauma or tenderness Mouth ED: No dry mucous membranes Mouth: No dry mucous membranes Eyes PERRL and EOMs intact bilaterally General Eye ED: Negative for pale conjunctiva, scleral icterus or other Neck no lymphadenopathy, supple and no JVD General: Negative for tenderness Chest Wall inspection of chest normal and palpation of chest normal Chest: Negative for other Resp normal respiratory effort and clear to auscultation bilaterally Effort and Inspection: Negative for retractions Auscultation: Negative for rales, rhonchi, wheezes or diminished lung sounds Cardio regular rate, regular rhythm, S1 normal heart sound, S2 normal heart sound and no murmurs Palpation: Negative for palpable S3 Rate: Negative for bradycardia Rhythm: Negative for abnormal rhythm GI normal to inspection, nondistended, normoactive bowel sounds, non-tender, non- distended and no masses Inspection: Negative for abdominal distention Auscultation: normoactive bowel sounds Palpation: soft; Negative for tender or guarding Back/Spine no CVA tenderness General Back: Negative for CVA tenderness Cervical Spine: Negative for cervical spine tenderness Thoracic Spine / Upper Back: Negative for thoracic spinal tenderness or paraspinal muscle tenderness Lumbar Spine / Lower Back: Negative for lumbar spinal tenderness Extremity normal to inspection General Extremety ED: Negative for edema or tenderness General Extremity: Negative for edema Neuro oriented x3 and CN's II-XII intact bilaterally Sensorium / Orientation: alert; Negative for orientation impaired, lethargic or stuporous Motor Exam: strength 5/5 throughout Psych mental status grossly normal Appearance: Negative for unkempt Attitude: No agitated Mood & Affect: Negative for depressed, anxious or tearful Skin no rashes or lesions noted, no wounds and skin turgor normal General Skin Exam: elasticity normal; Negative for jaundice or pallor Lesions: No lesion noted Rashes: No rashes noted Trauma: Negative for abrasion Wounds: Negative for wounds noted MDM MDM MDM Narrative Medical decision making narrative: Patient needs med refill. Has appointment set up with the counseling center later this month. He and I discussed that he should have this done either by primary care physician or mental health professional and not necessarily do this through the emergency department is not the most efficient place to have it done at. History & Record Review Discussion w/independent historian: Patient Discharge Plan Triage Chief Complaint: Med Refill ED Provider: Jeremiah Bradshaw Dx/Rx/DC Orders Clinical Impression: Medication refill, ADHD Instructions: Med Refill Prescriptions: New lamotrigine [Lamictal] 200 mg tablet 200 mg PO DAILY 30 Days Qty: 30 0RF risperidone 4 mg tablet 4 mg PO QHS Qty: 30 0RF No Action risperidone 2 mg tablet 4 mg PO QHS Patient Comments: TAKE 2 TABLETS BY MOUTH EVERY MORNING lamotrigine [Lamictal] 100 mg tablet 50 mg PO BID Patient Comments: TAKE 1/2 (ONE-HALF) OF A TABLET BY MOUTH TWICE DAILY lamotrigine 200 mg tablet 200 mg PO DAILY Qty: 30 0RF risperidone 4 mg tablet 6 mg PO DAILY 30 Days Qty: 30 0RF Primary Care Provider: Care Physician,No Primary Referrals: Counseling,Center [Group of Physicians] - As soon as possible (Keep your scheduled appointment.) Care Physician,No Primary [Primary Care Provider] - Activity Restrictions/Additional Instructions: Follow-up with the counseling center. Your medication should be refilled by 1 provider and not necessarily through the emergency department. Disposition Disposition: Home, Self Care
[2023-02-06 13:06] VITALS: RESP 16
== END 2023-02-06 13:07 | disposition home or self-care (01) ==
PROVIDERS: Emergency Provider Emergency Medicine; Visit Provider Emergency Medicine
DX: Z76.0 Encounter for issue of repeat prescription (principal); F90.9 Attention-deficit hyperactivity disorder, unspecified type; Z59.00 Homelessness unspecified; F17.210 Nicotine dependence, cigarettes, uncomplicated; F41.9 Anxiety disorder, unspecified; F32.A Depression, unspecified; Z79.899 Other long term (current) drug therapy
CPT/HCPCS: 99282